=== PATIENT | female | born 1945 | race Caucasian/White ===

== ENCOUNTER 2020-04-28 08:17 | Outpatient (CLI) | payer MEDICARE, SELFPAY ==
--- NOTE | 2020-04-28 | DI.RAD_ITS ---
EXAM: XR CHEST 2V PA LATERAL CLINICAL HISTORY: SOB R06.02 TECHNIQUE: 2D digital imaging was performed. COMPARISON: No exams were available for comparison FINDINGS: MEDIASTINUM: Normal. HEART: Normal. PULMONARY VASCULATURE: Normal. LUNGS: Clear. COPD. PLEURAL SPACE: No pleural effusion or pneumothorax. BONE:Within normal limits for the patient's age. OTHER FINDINGS:Normal. IMPRESSION: No acute pulmonary findings. DATA REPOSITORY: RADIATION DOSE DELIVERED:
== END 2020-04-28 08:37 ==
PROVIDERS: PCP Nurse Practitioner; Visit Provider Nurse Practitioner
DX: R06.02 Shortness of breath (principal); J44.9 Chronic obstructive pulmonary disease, unspecified
CPT/HCPCS: 71046

== ENCOUNTER 2020-04-28 11:31 | Outpatient (REF) | payer MEDICARE, SELFPAY ==
[2020-04-28 21:13] LABS: HCT 48.5 % (36.0-46.0); HGB 14.8 g/dL (11.2-15.7); MCH 31.2 pg (27.0-33.0); MCHC 30.5 % (32.0-36.0); MCV 102.1 fL (80-95); Platelet Count 291 10^3/uL (130-400); RBC 4.75 10^6/uL (3.93-5.22); RDW 12.5 % (11.7-14.6); RDW-SD 47.7 fL; WBC 10.14 10^3/uL (4.4-10.8)
[2020-04-28 22:17] LABS: ALT 21 U/L (14-59); AST 20 U/L (15-37); Albumin 3.8 g/dL (3.4-5.0); Alkaline Phosphatase 114 U/L (46-116); Anion Gap 10.5 mmol/L (3-11); BUN 7 mg/dL (7-18); Bilirubin, Total 0.4 mg/dL (0.2-1.0); CO2 29.5 mmol/L (21.0-32.0); CREATININE 0.84 mg/dL (0.55-1.02); Calcium 9.4 mg/dL (8.5-10.1); Calculated LDL 135 mg/dL (<100); Chloride 107 mmol/L (98-107); Cholesterol 226 mg/dL (<200); Glucose 129 mg/dL (74-106); HDL Cholesterol 58 mg/dL (40-60); Potassium 4.1 mmol/L (3.5-5.1); Sodium 147 mmol/L (136-145); TSH (W/Ref FT4) 0.61 uIU/mL (0.36-3.74); Total Protein 7.5 g/dL (6.4-8.2); Triglyceride 166 mg/dL (<150)
== END 2020-04-28 11:51 ==
LOC: NCHCN 11:31
PROVIDERS: PCP Nurse Practitioner; Visit Provider Nurse Practitioner
DX: R06.02 Shortness of breath (principal); E78.5 Hyperlipidemia, unspecified; Z82.49 Family history of ischemic heart disease and other diseases of the circulatory system; Z13.6 Encounter for screening for cardiovascular disorders
CPT/HCPCS: 80053; 80061; 85027; 84443

== ENCOUNTER 2020-05-14 03:08 | Outpatient (CLI) | payer MEDICARE, SELFPAY ==
[2020-05-14] MEDS: Breeza Beverage 473 ML BTL PO ×2 (07:24→07:25)
[2020-05-14] MEDS: Omnipaque 350 MG/ML 50 ML BTL PO (07:25)
[2020-05-14] MEDS: Omnipaque 350 MG/ML 100 ML BTL IJ (08:09)
[2020-05-14] MEDS: Normal Saline - Diluent 50 ML VIAL IV (08:11)
--- NOTE | 2020-05-14 09:00 | DI.CT_ITS ---
EXAM: CT ABDOMEN PELVIS W INDICATION: EPIGASTRIC ABD BULGE, HERNIA,R19.00. COMPARISON: No exams were available for comparison TECHNIQUE: FINDINGS: CT examination of the abdomen and pelvis was performed with a bolus infusion of 100 cc of Omnipaque 3 50 and ingestion of dilute barium.. Images obtained through the lung bases are unremarkable. Liver, spleen and pancreas appear normal. Prior cholecystectomy noted. No biliary dilatation.. Adrenals and kidneys are unremarkable. Urinary bladder unremarkable. Abdominal aorta is borderline aneurysmal at 2.9 cm greatest diameter. No focal abnormality of major visceral branches seen. Common iliac arteries are of normal diameter. There is a ventral hernia in the upper abdomen, the orifice of the hernia sac measures 5-6 cm in diam eter and the cysts subcutaneous portion of the hernia sac measures about 11 x 5 cm in diameter on axi al imaging. The hernia sac contains fat and a portion of the transverse colon which is nonobstructed and shows normal appearance. Appendix is normal. No evidence of bowel obstruction or diverticulitis although there is diverticulo sis. No abdominal or pelvic adenopathy. Uterus is atrophic or absent. Ovaries not visualized. IMPRESSION: Ventral hernia of the upper abdomen which contains a portion transverse colon which is nonobstructed. No other significant acute findings. Borderline size aneurysm of abdominal aorta, 2.9 cm greatest diameter, infrarenal. RADIATION DOSE DELIVERED: 1,004.45mGy.cm Total DLP 1,004.45mGy.cm Total DLP
== END 2020-05-14 03:28 ==
PROVIDERS: PCP Nurse Practitioner; Visit Provider Nurse Practitioner
DX: K43.9 Ventral hernia without obstruction or gangrene (principal)
CPT/HCPCS: 74177; J3490; Q9967

== ENCOUNTER → 2020-05-28 09:11 | Outpatient (BNVA) | payer MEDICARE, SELFPAY | PROVIDERS: PCP Nurse Practitioner; Referring Provider Nurse Practitioner; Visit Provider Surgery | DX: K43.2 Incisional hernia without obstruction or gangrene (principal); J44.9 Chronic obstructive pulmonary disease, unspecified; Z87.891 Personal history of nicotine dependence | CPT/HCPCS: 99202 ==

== ENCOUNTER 2020-05-31 00:33 | Outpatient (CLI) | payer MEDICARE, SELFPAY ==
--- NOTE | 2020-05-31 | DI.US_ITS ---
APPROVED REPORT EXAM: Comprehensive 2D, Doppler, and color-flow Echocardiogram Patient Location: Out-Patient Civil Engineer: Nasra Ferraro RDCS (AE) Indications: SOB Other Information Study Quality: Adequate Conclusion Borderline concentric left hypertrophy. Normal left ventricular chamber size. Estimated ejection fr action is 55%. There are no segmental wall motion abnormalities Normal right ventricular size and systolic function Normal right and left atrial size The aortic valve is trileaflet and sclerotic with mild regurgitation Mild mitral annular calcification. Mild mitral regurgitation Structurally normal tricuspid and pulmonic valves. Trace tricuspid regurgitation Right ventricular systolic pressure could not be estimated Wall motion Left Ventricle The left ventricle is normal size. The left ventricular systolic function is normal. The left ventric ular ejection fraction is within the normal range. Borderline concentric left ventricular hypertrophy . There is normal LV segmental wall motion. There is no ventricular septal defect visualized. LVEF is 55%. Right Ventricle The right ventricle is normal size. The right ventricular systolic function is normal. Atria The left atrium size is normal. The right atrium size is normal. The interatrial septum is intact wit h no evidence for an atrial septal defect. Aortic Valve The Aortic valve is sclerotic. Aortic valve is trileaflet. There is no aortic valvular stenosis. Mild aortic regurgitation. Mitral Valve Mild mitral annular calcification. No evidence of mitral valve stenosis. Mild mitral regurgitation. Tricuspid Valve The tricuspid valve is normal in structure. There is no tricuspid valve stenosis. Trace tricuspid reg urgitation. Unable to assess PA pressure. Pulmonic Valve The pulmonary valve is normal in structure. There is no pulmonic valvular stenosis. There is no pulmo karie valvular regurgitation. Great Vessels The aortic root is normal in size. The ascending aorta is mildly dilated. Aortic arch is not well vis ualized. IVC is normal in size and collapses >50% with inspiration. Pericardium There is no pericardial effusion. 2D Dimensions IVSD d PLAX 1.05 cm F: 0.6-1.0 LV Vol A2C d MOD 100.4 mL LVPW d PLAX 1.07 cm F: 0.6 - 1.0 LV Vol A4C d MOD 100.1 mL LVID d PLAX 4.83 cm F: 3.8 - 5.2 LA vol/ BSA A2C s A-L 28.0 mL/m2 LVDs 3.40 cm F: 2.2 - 3.5 LA vol/ BSA A4C s A-L 24.6 mL/m2 Ao Root d 2.92 cm F: 2.7 - 3.3 LA Vol/ BSA Biplane s A-L 26.7 mL/m2 RA Area A4C 14.72 cm2 LA Area A4C s MOD 16.73 cm2 RA Vol/ BSA A4C s A-L 19.6 mL/m2 LA Area A2C s MOD 18.19 cm2 Ao Asc Diam d 3.32 cm F: 2.3 - 3.1 LV EF A4C MOD 56.9 % LV EF Teichholz 56.2 % LV EF A2C MOD 56.1 % LVEF (Barnhart's) 56.68 % F: 54 - 74 LV EF Biplane MOD 56.7 % LV Volume 78.70 mL F: 46 - 106 SV 57.65 mL LV Volume Index 43.24 mL/m2 F: 29 - 61 SV Index 31.55 mL/m2 LV Vol Biplane MOD 101.7 mL FS 29.40 % M-Mode TAPSE 2.20 cm (M/F) >1.7 LV Diastology MV E' medial 0.070 (>0.07 m/s) E/A Ratio 0.8 LV E/e MED 9.50 (<14) MV E Vmax 0.67 (0.4-1.3 m/s) MV E' lateral 0.074 (>0.1 m/s) MV A Vmax 0.85 (0.4-1.3 m/s) LV E/e LAT 9.00 (<14) MV E/A Ratio 0.77 MV E/E' medial 9.54 MV E/E' lateral 9.04 Aortic Valve LVOT Area 3.10 cm2 AoV Area Vmax 2.29 cm2 LVOT Vmax 1.05 m/s AoV Area/ BSA (Vmax) 1.25 cm2/m2 LVOT Mean Brain. 0.61 m/s ALEX Mean Brain. 1.69 cm2 LVOT Peak Grad 4.4 mmHg ALEX Mean Brain. Index 0.92 cm2/m2 LVOT Mean Grad 1.8 mmHg AR DT 1784 msec LVOT VTI 0.214 m AR PHT 517 msec LVOT Diam s 1.95 cm AoV Vmax 1.42 m/s Velocity Ratio 0.73 AoV Mean Brain. 1.12 m/s AoV Peak Grad 8.0 mmHg LVOT SV 66.33 mL AoV Mean Grad 5.3 mmHg AoV VTI 0.335 m AoV Area VTI 1.98 cm2 AoV Area/ BSA (VTI) 1.08 cm/m2 Mitral Valve MV DT 206 (160-240 msec) MR Vmax 5.57 m/s MV PHT 60 msec MR VTI 2.088 m MV Area PHT 3.69 cm2 MR Peak Grad 124.2 mmHg MV VTI 0.233 m MR Mean Grad 91.4 mmHg MV VTI Annulus 0.219 m MR PISA Radius 0.49 cm MV Area VTI 2.69 (4.0-6.0 cm2) MR EROA 0.09 cm2 MR Aliasing Velocity 0.35 m/s MR PISA 1.50 cm2 Pulmonary Valve PV Vmax 0.95 (0.5-1.5 m/s) RVOT Peak Gr. 1.94 mmHg PV Peak Grad 3.6 mmHg RVOT Mean Gr. 1.00 mmHg PV Mean Grad 1.8 mmHg RVOT VTI 0.158 m PV VTI 0.169 m RVOT Vmax 0.70 m/s
== END 2020-05-31 00:53 ==
PROVIDERS: PCP Nurse Practitioner; Visit Provider Nurse Practitioner
DX: R06.02 Shortness of breath (principal); I08.0 Rheumatic disorders of both mitral and aortic valves
CPT/HCPCS: 93306

== ENCOUNTER 2020-10-14 03:01 | Outpatient (CLI) | payer MEDICARE, SELFPAY ==
[2020-10-14] MEDS: Albuterol HFA 18 GM 200 PUFF INH IH (14:00)
[2020-10-14] MEDS: Inhaler, Assist Device 1 EACH MC (14:01)
--- NOTE | 2020-10-27 08:18 | W.PFT ---
Date of service: 10/14/20 Time of Service: 12:59 Pulmonary Function Test Result Interpretation Spirometry: Moderately severe obstructive airways disease with significant bronchodilator response Lung Volumes: No evidence of restriction Diffusion Capacity: Severely reduced, this is moderately reduced when corrected to alveolar volume Airway Pressure: Normal Impression Moderately severe obstructive airways disease with significant bronchodilator response, this is associated with moderate to severe diffusion defect Clinical Correlation therefore is recommended.
== END 2020-10-14 03:02 | disposition home or self-care (01) ==
LOC: RT 03:01
PROVIDERS: PCP Nurse Practitioner; Visit Provider Nurse Practitioner
DX: R06.02 Shortness of breath (principal); Z87.891 Personal history of nicotine dependence
CPT/HCPCS: 94060; 94726; 94729

== ENCOUNTER 2021-02-08 00:51 | Outpatient (CLI) | payer MEDICARE, SELFPAY ==
--- NOTE | 2021-02-08 | DI.US_ITS ---
Exam(s) US HERNIA EXAM: US HERNIA CLINICAL HISTORY: HERNIA,K46.9. TECHNIQUE: Ultrasound was performed using standard protocol. COMPARISON: CT CT ABDOMEN PELVIS W from 05/14/[address] ABDOMEN PELVIS W from 05/14/2020 FINDINGS: Sonographic assessment utilizing grayscale and color Doppler imaging was performed and targeted to th e area of clinical concern. There does appear to be a defect in the anterior abdominal wall in the mid to upper abdomen sonograph ically. There does appear to be herniation of fat through the defect on Valsalva. This corresponds to the ventral hernia seen on the CT scan from 05/14/2020. If further evaluation is warranted a CT sc an of the abdomen may be considered. IMPRESSION: DATA REPOSITORY:
--- NOTE | 2021-02-08 | DI.US_ITS ---
Exam(s) US AAA DIAGNOSTIC EXAM: US AAA DIAGNOSTIC CLINICAL HISTORY: F/U AAA,I71.4 COMPARISON: CT CT ABDOMEN PELVIS W from 05/14/2020 FINDINGS: Abdominal Aorta: Proximal: 2.8 x 2.7 cm Mid: 2.3 x 2.4 cm Distal: 2.9 x 2.8 cm Iliac's: Right: 1.3 x 1.3 cm Left: 1.4 x 1.2 cm The doppler velocities are within normal limits. Atherosclerosis. IMPRESSION: Ectasia of the distal abdominal aorta with a maximum diameter of 2.9 cm. DATA REPOSITORY:
== END 2021-02-08 01:11 ==
PROVIDERS: PCP Nurse Practitioner; Visit Provider Nurse Practitioner
DX: K46.9 Unspecified abdominal hernia without obstruction or gangrene (principal); I77.811 Abdominal aortic ectasia; I71.4 Abdominal aortic aneurysm, without rupture
CPT/HCPCS: 76857; 76775

== ENCOUNTER 2021-04-25 10:02 | Outpatient (REF) | payer MEDICARE, SELFPAY ==
[2021-04-25 15:50] LABS: Hemoglobin A1C 6.2 % (<5.7)
[2021-04-25 15:53] LABS: ALT 26 U/L (14-59); AST 21 U/L (15-37); Albumin 3.9 g/dL (3.4-5.0); Alkaline Phosphatase 139 U/L (46-116); Anion Gap 9.4 mmol/L (3-11); BUN 21 mg/dL (7-18); Bilirubin, Total 0.2 mg/dL (0.2-1.0); CO2 28.6 mmol/L (21.0-32.0); Calcium 10.1 mg/dL (8.5-10.1); Calculated LDL 97 mg/dL (<100); Chloride 104 mmol/L (98-107); Cholesterol 183 mg/dL (<200); Estimated GFR 54.05 (mL/min/1.73m2); Glucose 109 mg/dL (74-106); HDL Cholesterol 63 mg/dL (40-60); Potassium 4.8 mmol/L (3.5-5.1); Sodium 142 mmol/L (136-145); Total Protein 7.8 g/dL (6.4-8.2); Triglyceride 119 mg/dL (<150)
== END 2021-04-25 10:03 | disposition home or self-care (01) ==
LOC: NCHCN 10:02
PROVIDERS: PCP Nurse Practitioner; Visit Provider Nurse Practitioner
DX: I10 Essential (primary) hypertension (principal); E78.5 Hyperlipidemia, unspecified; I71.4 Abdominal aortic aneurysm, without rupture; R73.9 Hyperglycemia, unspecified
CPT/HCPCS: 80053; 80061; 83036

== ENCOUNTER → 2021-12-21 02:26 | Outpatient (CLI) | payer MEDICARE, SELFPAY ==
--- NOTE | 2021-12-21 | DI.US_ITS ---
Exam(s) US AAA DIAGNOSTIC EXAM: US AAA DIAGNOSTIC CLINICAL HISTORY: AAA, I71.4 COMPARISON: CT CT ABDOMEN PELVIS W from 05/14/2020 US US AAA DIAGNOSTIC from 02/08/2021 FINDINGS: Abdominal Aorta: Proximal: 2.8 cm Mid: 2.4 cm Distal: 2.9 cm Iliacs: Right: 1.3 cm Left: 1.4 cm Atherosclerotic calcifications are present. IMPRESSION: Stable ectasia distal abdominal aorta. DATA REPOSITORY:
== END ==
PROVIDERS: PCP Nurse Practitioner; Visit Provider Nurse Practitioner Family
DX: I71.4 Abdominal aortic aneurysm, without rupture (principal)
CPT/HCPCS: 76775

== ENCOUNTER 2022-10-23 09:20 | Outpatient (REF) | payer MEDICARE, SELFPAY ==
[2022-10-23 14:39] LABS: Abs Immature Grans 0.01 10^3/uL (0.0-0.06); Absolute Eosinophil Count 0.18 10^3/uL (0.0-0.7); Absolute Lymphocyte Count 2.58 10^3/uL (1.2-3.4); Absolute Monocyte Count 0.61 10^3/uL (0.1-0.8); Absolute Neutrophil Count 5.04 10^3/uL (1.2-6.7); Basophils % 1.2; Eosinophils % 2.1; HCT 40.3 % (36.0-46.0); HGB 12.8 g/dL (11.2-15.7); Immature Grans % 0.1; Lymphocytes % 30.3; MCH 29.3 pg (27.0-33.0); MCHC 31.8 % (32.0-36.0); MCV 92 fL (80-95); MPV 11.3 fL (8.0-11.0); Monocytes % 7.2; Neutrophils % 59.1; Platelet Count 301 10^3/uL (130-400); RBC 4.37 10^6/uL (3.93-5.22); RDW 12.9 % (11.7-14.6); RDW-SD 44.1 fL; WBC 8.52 10^3/uL (4.4-10.8)
[2022-10-23 14:58] LABS: ALT 17 U/L (14-59); AST 21 U/L (15-37); Albumin 3.6 g/dL (3.4-5.0); Alkaline Phosphatase 124 U/L (46-116); Anion Gap 6.6 mmol/L (3-11); BUN 17 mg/dL (7-18); Bilirubin, Total 0.3 mg/dL (0.2-1.0); CO2 30.4 mmol/L (21.0-32.0); CREATININE 1.1 mg/dL (0.55-1.02); Calculated LDL 90 mg/dL (<100); Chloride 106 mmol/L (98-107); Cholesterol 167 mg/dL (<200); Estimated GFR 51.75 (mL/min/1.73m2); Glucose 113 mg/dL (74-106); HDL Cholesterol 61 mg/dL (40-60); Potassium 4.3 mmol/L (3.5-5.1); Sodium 143 mmol/L (136-145); Total Protein 7.5 g/dL (6.4-8.2); Triglyceride 83 mg/dL (<150)
[2022-10-23 15:01] LABS: Hemoglobin A1C 6.2 % (<5.7)
== END 2022-10-23 09:21 | disposition home or self-care (01) ==
LOC: NCHCN 09:20
PROVIDERS: PCP Nurse Practitioner Family; Visit Provider Nurse Practitioner Family
DX: I10 Essential (primary) hypertension (principal); E78.5 Hyperlipidemia, unspecified; R05.3 Chronic cough; J44.9 Chronic obstructive pulmonary disease, unspecified; R73.09 Other abnormal glucose
CPT/HCPCS: 80053; 80061; 83036; 85025

== ENCOUNTER 2023-01-19 00:42 | Outpatient (CLI) | payer MEDICARE, SELFPAY ==
--- NOTE | 2023-01-19 | DI.US_ITS ---
Exam(s) US AAA DIAGNOSTIC EXAM: US AAA DIAGNOSTIC CLINICAL HISTORY: F/U AAA,i71.4 COMPARISON: CT CT ABDOMEN PELVIS W from 05/14/2020 US US AAA DIAGNOSTIC from 12/21/2021 FINDINGS: The abdominal aorta is again noted be ectatic. Maximum diameter is a transverse measurement at the m id aortic level measuring 3.5 cm. This measurement is higher than prior studies.. Distal most aorta measures 2.1 cm. The bilateral common iliac artery measurements are also higher than on previous studies, measuring 1. 9 cm on the right and 2.2 cm on the left. IMPRESSION: Somewhat of a change when compared to prior measurements. Recommend follow-up abdominal-pelvic CT sc an for most accurate measurements, and to ensure that the present ultrasound measurements were not ob tained obliquely, given falsely elevated readings when compared to prior ultrasound studies. If one wishes to determine just the size of the aorta and iliac arteries than the CT scan can be done without IV contrast. DATA REPOSITORY:
== END 2023-01-19 01:02 ==
LOC: DI 00:42
PROVIDERS: PCP Nurse Practitioner Family; Visit Provider Nurse Practitioner Family
DX: I71.40 Abdominal aortic aneurysm, without rupture, unspecified (principal)
CPT/HCPCS: 76775

== ENCOUNTER → 2023-05-16 10:55 | Outpatient (BNVA) | payer MEDICARE, SELFPAY | PROVIDERS: PCP Nurse Practitioner Family; Referring Provider Nurse Practitioner Family; Visit Provider Surgery | DX: K46.9 Unspecified abdominal hernia without obstruction or gangrene (principal); J44.9 Chronic obstructive pulmonary disease, unspecified; K21.9 Gastro-esophageal reflux disease without esophagitis | CPT/HCPCS: 99213 ==

== ENCOUNTER 2023-06-29 07:27 | Day surgery (SDC) | payer MEDICARE, SELFPAY ==
--- NOTE | 2023-06-28 16:50 | W.PREOPHP ---
Assessment and Plan Assessment and plan (1) Hernia: Status: Chronic Assessment and plan: We reviewed the plan for incisional hernia repair with mesh today. We reviewed all of her questions, and plan to proceed to the operating room History of Present Illness History of Present Illness Chief Complaint: Ventral hernia Narrative: She has had the hernia for several years. She thinks it may have started from the mid epigastric port site from a laparoscopic cholecystectomy. Generally, it does not bother her very much, but has certainly increased in size. There are some positions which cause a little bit of pain. She denies any obstructive symptoms like nausea, vomiting, or worrisome abdominal distention. Her other medical history includes some COPD, which is well managed with inhalers. She also has some mild gastroesophageal reflux disease. PFSH All Active Problems Edema (Acute) Pain, foot (Acute) Corns and callosities (Acute) Nail dystrophy (Acute) Ingrowing nail (Acute) Hypertension (Chronic) COPD (chronic obstructive pulmonary disease) (Chronic) Stage II in 2021. Hyperlipemia (Acute) Abdominal mass (Acute) AAA (abdominal aortic aneurysm) (Acute) 2.9cm in 2020 Hernia (Chronic) Medical History Ventral hernia Chronic cough Prediabetes History of tobacco use significant use; [id number] history; quit in 2009 SOB (shortness of breath) Family history of early CAD Elevated blood pressure reading Social History Smoking/Tobacco Use Status: Former Tobacco Use Quit Date: 08/27/09 Pack-years: 50 Smoking risk assessment performed?: Yes Alcohol Intake: current Alcohol Intake frequency: a few times a week Drug use: Never Substance use type: does not use Housing: apartment Current gender identity: female Do you feel safe at home: Yes Do you feel safe in your relationship?: Yes Meds Allergies and Home Medications Allergies Allergy/AdvReac Type Severity Reaction Status Date / Time fish oil Allergy Unknown Verified 06/29/23 08:39 codeine AdvReac Mild Nausea Verified 06/29/23 08:39 Home Medications Medication Instructions Recorded Confirmed Type albuterol sulfate 90 mcg/actuation 2 puff inhalation Q6H PRN 05/25/20 06/29/23 History aerosol inhaler (ProAir HFA) amlodipine 10 mg tablet 10 mg PO DAILY 09/04/22 06/29/23 History cetirizine 10 mg tablet (All Day 10 mg PO DAILY 09/04/22 06/29/23 History Allergy (cetirizine)) esomeprazole magnesium 20 mg 20 mg PO DAILY 09/04/22 06/29/23 History capsule,delayed release lisinopril 10 mg tablet 20 mg PO DAILY 09/04/22 06/29/23 History rosuvastatin 20 mg tablet 20 mg PO DAILY 09/04/22 06/29/23 History fluticasone propionate 230 2 puff inhalation BID 11/30/22 06/29/23 History mcg-salmeterol 21 mcg/actuation HFA inhaler (Advair HFA) hydrochlorothiazide 12.5 mg tablet 12.5 mg PO DAILY 11/30/22 06/29/23 History Exam Const General: cooperative, healthy appearing and not in acute distress Neck Neck: normal visual inspection, no lymphadenopathy and supple Resp Effort & Inspection: normal respiratory effort Auscultation: clear to auscultation bilaterally Cardio Jugular venous pressure: no JVD Rate: regular rate Rhythm: regular rhythm Heart Sounds: S1 normal and S2 normal GI Inspection: normal to inspection Palpation: soft, no guarding, hernia (Upper midline ventral hernia) and nontender Percussion: normal to percussion Auscultation: normal bowel sounds Neuro General: patient alert, patient awake and patient oriented x3 Psych Appearance: grossly normal
--- NOTE | 2023-06-28 16:51 | W.PM.DSUDISC ---
Date of service: 06/29/23 Time of Service: 10:48 Discharge Plan Disposition Patient Disposition: Home Condition: Good Discharge Details Reason For Visit: Ventral hernia repair Attending Provider: Rei Le Primary Care Provider: JATINDER WOODALL Home Meds and New Rx's Prescriptions: Continued esomeprazole magnesium 20 mg capsule,delayed release(DR/EC) 20 mg PO DAILY amlodipine 10 mg tablet 10 mg PO DAILY rosuvastatin 20 mg tablet 20 mg PO DAILY cetirizine [All Day Allergy (cetirizine)] 10 mg tablet 10 mg PO DAILY albuterol sulfate [ProAir HFA] 90 mcg/actuation HFA aerosol inhaler 2 puff inhalation Q6H PRN lisinopril 10 mg tablet 20 mg PO DAILY fluticasone propion-salmeterol [Advair HFA] 230-21 mcg/actuation HFA aerosol inhaler 2 puff inhalation BID hydrochlorothiazide 12.5 mg tablet 12.5 mg PO DAILY Discharge Instructions Instructions: Ventral Hernia Repair (DC) Additional Instructions: Carmina, we were able to repair your hernia today like we talked about in the office. I closed the tough layer of tissue underneath of the rectus muscles, and inserted a permanent mesh underneath this to reinforce it. We also closed the top layer of fascia on top of the muscles as well. Expect to have a little bit of increased pain over the next day or 2 as some of the numbing medication wears off. Tylenol and ibuprofen will probably be very helpful in the coming 2 to 3 days. I have also provided a prescription for a medication called tramadol which can help if your pain is not otherwise controlled. If you have any questions at all, please do not hesitate to contact me. Otherwise, we look forward to seeing you in the office next week for removal of your bandage. 1. Resume all of your medications. 2. Heating pads and ice packs will be useful to help control discomfort in the days following surgery 3. Okay to use tylenol and ibuprofen over the counter as needed. 4. We have provided an abdominal binder (the elastic bandage that goes around her torso) for the first couple days after surgery. I would encourage you to wear this when you are up and about and moving around. It can be removed for sleep. If you find it particularly uncomfortable, we will be okay to remove. 5. Underneath of the binder is a clear bandage that provide suction on the incision to help control any drainage that might occur in the days to follow your operation. If you notice that the blinking the light on the little battery changes from green to red, please let us know. Otherwise, we plan to change this in the office in a week. It is okay to shower with this device. 6. No soaking or tub baths until I see you in the office. 7. No heavy lifting until I see you in the office. 8.Call the office (or go directly to the emergency room after hours) if you notice any of the following: Develop chills (warm to touch), or if you have a thermometer and your temperature is above 101 Difficulty breathing or difficultly swallowing Persistent vomiting Any bleeding ? exceeding one tablespoon 9. Call your physician if the site where your intravenous was started becomes red, swollen, painful, and warm to touch. Referrals: Rei Le MD [ [facility] STAFF PHYSICIAN] - (July 04 at 3:15 PM) Activity:: No heavy lifting Shower/Bathe:: 24 hours Diet:: As Tolerated Discharge Orders Discharge Orders: Discharge Order (Routine); Ordered 06/28/23 Ordered By: Rei Le DS: Diagnosis Discharge Diagnosis (1) Hernia: Status: Chronic Asessment and Plan: Outpatient routine postoperative follow-up
--- NOTE | 2023-06-28 16:53 | W.PM.OP ---
Date of service: 06/29/23 Time of Service: 10:56 Operative Note Operative Note DATE OF PROCEDURE: 06/29/23 PRE-OP DIAGNOSIS: Ventral hernia PROCEDURE: Open ventral hernia repair with mesh SURGEON: Rei Le STEM DRYER MAINTAINER: Lurdes Leigh ANESTHESIA TYPE: General LMA/ETT Refer to Anesthesia Record ESTIMATED BLOOD LOSS: 25 PATHOLOGY: none sent COMPLICATIONS: None Patient was transported to: PACU Patient's condition: stable Implants: Bard polypropylene mesh Indications: Clarke is a 78-year-old woman with a large midline upper ventral hernia. Is been increasing in size, and causes some discomfort from time to time. Procedure Description: After the induction of general anesthesia, prepped and draped the anterior abdominal wall in the usual fashion. Next, using local anesthetic, I established a generous field block. I then made a midline incision, and I dissected down into the subcutaneous tissues. The hernia was almost immediately under the skin, and with gentle dissection, I began it from the surrounding soft tissues. The sac itself was quite attenuated, and because of difficulty handing it, I did elect to open the sac and dissect down to the fascia by way of an internal approach. Once this was completed, the hernia sac itself was carefully dissected away from the fascial edge. The fascia defect was approximately 5 cm from top to bottom, and about 4-4 and half centimeters wide. Using a Kyler-Stoppa approach I incised the rectus sheath towards the posterior element. I carefully dissected the rectus muscles off of the rectus sheath, taking great care to preserve the neurovascular supply. Once this was complete, I closed the posterior fascial sheath with a running 2-0 Prolene suture. Next, I trimmed a 6 x 4 polypropylene mesh to provide sufficient overlap of the repair. I pexied this down onto the fascia with interrupted Prolene sutures. I allowed the rectus muscles to retract towards the midline. Next, I began approximating the anterior rectus sheath. This layer was quite attenuated. [place] type suture was used to help approximate the fascia without too much tension along the closure. Once this was complete, the soft tissues were irrigated. The potential space that had been created by the hernia was then approximated with several layers of interrupted Vicryl sutures. Skin was closed with a running subcuticular stitch, and elfego dressing was applied. An abdominal binder was also used to help assist with patient comfort, and to reduce pressure across the repair site.
[2023-06-29] VITALS (17 sets, daily range): BP systolic 95–123; BP diastolic 32–58; PULSE 63–75; RESP 3–27; TEMP 35.9–36.8; O2SAT 89–96; BMI 32.8
[2023-06-29] MEDS: Gabapentin 300 MG CAP 600 MG PO (08:07)
[2023-06-29] MEDS: Acetaminophen 500 MG TAB 1000 MG PO (08:08)
[2023-06-29] MEDS: Celecoxib 200 MG CAP PO (08:08)
[2023-06-29] MEDS: Lactated Ringers 1,000 ML 80 ML IV (08:26)
--- NOTE | 2023-06-29 08:27 | ANES.PREOP_ITS ---
General Info Date of Service Date Performed: 06/29/23 Height: 5 ft 2 in Weight: 81.3 kg Body Mass Index (BMI): 32.8 Surgical Procedure: Operation Date: 06/29/23 09:10 Proposed Procedure Side Surgeon p Herniorrhaphy Ventral Rei Le MD Meds Allergies and Home Medications Allergies Allergy/AdvReac Type Severity Reaction Status Date / Time fish oil Allergy Unknown Verified 06/29/23 07:57 codeine AdvReac Mild Nausea Verified 06/29/23 07:57 Home Medication Medication Instructions Recorded albuterol sulfate 90 mcg/actuation 2 puff inhalation Q6H PRN 05/25/20 aerosol inhaler (ProAir HFA) amlodipine 10 mg tablet 10 mg PO DAILY 09/04/22 cetirizine 10 mg tablet (All Day 10 mg PO DAILY 09/04/22 Allergy (cetirizine)) esomeprazole magnesium 20 mg 20 mg PO DAILY 09/04/22 capsule,delayed release lisinopril 10 mg tablet 20 mg PO DAILY 09/04/22 rosuvastatin 20 mg tablet 20 mg PO DAILY 09/04/22 fluticasone propionate 230 2 puff inhalation BID 11/30/22 mcg-salmeterol 21 mcg/actuation HFA inhaler (Advair HFA) hydrochlorothiazide 12.5 mg tablet 12.5 mg PO DAILY 11/30/22 Current Visit Medications: Current Medications Generic Name Dose Route Start Last Admin Trade Name Freq PRN Reason Stop Dose Admin Acetaminophen 1,000 mg 06/29/23 06:00 06/29/23 08:08 Acetaminophen 500 Mg Tab PO 06/29/23 16:00 1,000 mg PREOP KATHLEEN Administration Celecoxib 200 mg 06/29/23 06:00 06/29/23 08:08 Celecoxib 200 Mg Cap PO 06/29/23 16:00 200 mg PREOP KATHLEEN Administration Gabapentin 600 mg 06/29/23 06:00 06/29/23 08:07 Gabapentin 300 Mg Cap PO 06/29/23 16:00 600 mg PREOP KATHLEEN Administration Ringer's Solution 1,000 mls @ 80 mls/hr 06/29/23 06:00 06/29/23 08:26 IV 07/28/23 23:59 80 mls/hr INFUSION KATHLEEN Administration Cefazolin Sodium/Dextrose 2 gm in 50 mls @ 100 mls/hr 06/29/23 08:15 Ancef Duplex IV 06/29/23 08:44 NOW ONE IV Miscellaneous Supplies 1 each 06/29/23 06:00 Iv Access IV 07/28/23 23:59 DIRECTED KATHLEEN Sodium Chloride 0 ml 06/29/23 06:00 Normal Saline Flush 10 Ml Syr IV 07/28/23 23:59 PRN PRN Sodium Chloride 0 ml 06/29/23 06:00 Normal Saline 10 Ml Vial IJ 07/28/23 23:59 DIRECTED PRN Sterile Water 0 ml 06/29/23 06:00 Water,Injection,Sterile 10 Ml Vial IJ 07/28/23 23:59 DIRECTED PRN Tramadol HCl 50 mg 06/28/23 16:54 Tramadol 50 Mg Tab PO 07/28/23 16:53 Q6H PRN PRN Pain PFSH Active Problems Active Problems: Problem Status Onset Code Edema R60.9 Pain, foot M79.673 Corns and callosities L84 Nail dystrophy L60.3 Ingrowing nail L60.0 Hypertension I10 COPD (chronic obstructive pulmonary disease) J44.9 Hyperlipemia E78.5 Abdominal mass R19.00 AAA (abdominal aortic aneurysm) I71.4 Hernia K46.9 Medical History Medical History Ventral hernia Chronic cough Prediabetes History of tobacco use significant use; 30-plzx-syxh history; quit in 2009 SOB (shortness of breath) Family history of early CAD Elevated blood pressure reading Tobacco Smoking/Tobacco Use Status: Former Tobacco Use Alcohol Alcohol Intake: current Alcohol intake frequency: a few times a week Substance Use Substance use: Never Substance use type: does not use Vital Signs and Lab Results Vital Signs Most Recent Vital Signs in EMR: Most Recent Vital Signs Temp Pulse Resp BP Pulse Ox 36.8 C 74 18 108/58 L 95 06/29/23 08:00 06/29/23 08:00 06/29/23 08:00 06/29/23 08:00 06/29/23 08:00 Lab Results Blood Type / Crossmatch: No Data to Display Complete Blood Count: No Data to Display Complete Metabolic Panel: No Data to Display Liver Function Panel: No Data to Display Coagulation Panel: No Data to Display Cardiac Panel: No Data to Display Arterial Blood Gas: No Data to Display Venous Blood Gas: No Data to Display Pancreas Panel: No Data to Display Thyroid Panel: 2 No Data to Display Infectious Disease: No Data to Display Blood Cultures: No Data to Display Toxicology Panel: No Data to Display Imaging and Studies Imaging and Studies Study information below may be from another EMR and interpreted by another provider. Please see original notes in EMR for more complete details. Echocardiogram Summary: Date of Exam: 05/31/20 Sex: F Admission Date: 05/31/20 : 1945 Age: 74 Exam(s) a US:US echocardiogram APPROVED REPORT EXAM: Comprehensive 2D, Doppler, and color-flow Echocardiogram Patient Location: Out-Patient Systems Programmer: Nasra Ferraro RDCS (AE) Indications: SOB Other Information Study Quality: Adequate Conclusion Borderline concentric left hypertrophy. Normal left ventricular chamber size. Estimated ejection fraction is 55%. There are no segmental wall motion abnormalities Normal right ventricular size and systolic function Normal right and left atrial size The aortic valve is trileaflet and sclerotic with mild regurgitation Mild mitral annular calcification. Mild mitral regurgitation Structurally normal tricuspid and pulmonic valves. Trace tricuspid regurgitation Right ventricular systolic pressure could not be estimated Pulmonary Function Summary: Pulmonary Function Test Result Interpretation Spirometry: Moderately severe obstructive airways disease with significant bronchodilator response Lung Volumes: No evidence of restriction Diffusion Capacity: Severely reduced, this is moderately reduced when corrected to alveolar volume Airway Pressure: Normal Impression Moderately severe obstructive airways disease with significant bronchodilator response, this is associated with moderate to severe diffusion defect Clinical Correlation therefore is recommended. Anesthesia Assessment and Plan Anesthesia History Personal History: No History of Anesthesia Complications Family History: No Family History of Anesthesia Complications Exercise Tolerance Exercise Tolerance: Metabolic Equivalents>4 Pertinent Negatives Pertinent Negatives: No Symptoms of GERD and No Major Cardiovascular Symptoms or Complaints Cardiac & Pulmonary Exam Cardiac Exam: Normal S1/S2 Heart Sounds Pulmonary Exam: Clear Bilateral Breath Sounds Implantable Cardiac Device Does patient have a Pacemaker or an ICD?: No Airway Exam Known Difficult Airway: No Mallampati Class: 2 Mouth Opening: Normal (> 3cm) Thyromental Distance: Less than 3 cm Neck Range of Motion: Full ROM Neck Circumference: Normal Teeth Condition: Normal Dentition ASA Classification ASA Score: ASA 3 Emergency Case?: No NPO Status NPO Status: NPO Clears >2 hours, Solids >8 hours Anesthesia Plan Resuscitation Status: Full Code Anesthesia Technique: General Anesthesia Airway Planned: LMA Pain Management: Surgeon and patient request nerve block Monitors Used: Standard Monitors
[2023-06-29] MEDS: ceFAZolin 2 GM/50 ML BAG IV (09:05)
[2023-06-29] MEDS: Bupivacaine LIPOSOME/PF 133 MG/10 ML VIAL IJ (10:06)
[2023-06-29] MEDS: Bupivacaine 0.25% Pres-Free 30 ML VIAL (10:06)
[2023-06-29] MEDS: fentaNYL 100 MCG/2 ML VIAL IVP (11:05)
[2023-06-29] MEDS: traMADol 50 MG TAB PO (13:00)
[2023-06-29] MEDS: Albuterol 2.5 MG/3 ML INH SOLN VIAL UPD (13:15)
[2023-06-29] MEDS: Albuterol/Ipratropium 3 ML UPD VIAL UPD (14:29)
--- NOTE | 2023-06-29 15:01 | W.ANESPOSTOP ---
Postoperative Evaluation Date, Time and Location Date Performed: 06/29/23 Time Performed: 15:01 Patient Location: Day Surgery Unit Vital Signs Most Recent Imported Vital Signs: Most Recent Vital Signs Temp Pulse Resp BP Pulse Ox 36.6 C 70 20 114/57 L 92 L 06/29/23 14:06 06/29/23 14:29 06/29/23 14:06 06/29/23 14:06 06/29/23 15:01 Pain Score Most Recent Pain Score: Most Recent Pain Score Pain Level 2 06/29/23 14:06 Assessment Mental Status: Awake (Alert & Oriented to Patient Baseline) Airway and Respiratory Function: Patent airway with normal (patient baseline) respiratory exam Cardiovascular Function: Hemodynamically Stable Hydration Status: Adequately Hydrated Nausea & Vomiting: No Nausea or Vomiting Pain: Pain is tolerable per patient Peripheral Nerve Block: Patient did not receive a nerve block Postoperative Comments:: Pt. required supplemental oxygen after surgery for some time. She also was noted be be wheezy bilaterally with SpO2 84-86% on room air. She states at home she is 88-92% when walking. Does not use home oxygen. She was given time as well as albuterol neb and duoneb with improvement. She ambulated with SpO2 up to 92%, then increased after sitting. She feels like she is breathing normally and is ready to go home. I did advise that a pulmonary consult would likely benefit her and she states she will follow up on this.
== END 2023-06-29 15:15 | disposition home or self-care (01) ==
LOC: SUR 07:28
PROVIDERS: PCP Nurse Practitioner Family; Visit Provider Surgery
PROC: (CPT 49593; principal; 2023-06-29 09:00)
DX: K43.2 Incisional hernia without obstruction or gangrene (principal); I10 Essential (primary) hypertension; J44.9 Chronic obstructive pulmonary disease, unspecified; E78.5 Hyperlipidemia, unspecified; R73.03 Prediabetes
CPT/HCPCS: 49593; 94640; 94760; C1781; J0690; J1100; J2001; J2405; J2704; J3010; J7613; J7620

== ENCOUNTER → 2023-07-04 15:11 | Outpatient (BNVA) | payer MEDICARE, SELFPAY | PROVIDERS: PCP Nurse Practitioner Family; Referring Provider Nurse Practitioner Family; Visit Provider Surgery | DX: Z48.817 Encounter for surgical aftercare following surgery on the skin and subcutaneous tissue (principal); K46.9 Unspecified abdominal hernia without obstruction or gangrene ==

== ENCOUNTER → 2023-07-11 08:23 | Outpatient (BNVA) | payer MEDICARE, SELFPAY | PROVIDERS: PCP Nurse Practitioner Family; Referring Provider Nurse Practitioner Family; Visit Provider Surgery | DX: Z48.817 Encounter for surgical aftercare following surgery on the skin and subcutaneous tissue (principal) ==

== ENCOUNTER 2023-09-12 17:23 | Inpatient (IN) | payer MEDICARE, SELFPAY ==
[2023-09-12] VITALS (137 sets, daily range): BP systolic 65–145; BP diastolic 43–94; PULSE 71–105; RESP 15–30; TEMP 36.1–37.2; O2SAT 73–94
--- NOTE | 2023-09-12 17:30 | RT.EKG_ITS ---
APPROVED REPORT Exam: Resting ECG Reason for Exam: shortness of breath Patient Location: E HR:89 bpm ECG Measurements Heart Rate 89 AXIS GA 160 P 57 QRSd 95 QRS 1 QT 379 T 59 QTc 462 Conclusion Sinus rhythm normal axis non specific st depressions
--- NOTE | 2023-09-12 17:30 | DI.RAD_ITS ---
Exam(s) XR PORTABLE CHEST AP EXAM: XR PORTABLE CHEST AP CLINICAL HISTORY: cough TECHNIQUE: 2D digital imaging was performed. COMPARISON: CR XR CHEST 2V PA LATERAL from 04/28/2020 FINDINGS: The exam is limited by under penetration at the lung bases. LUNGS: There is a small left pleural effusion. There are increased densities at both lung bases, gre ater on the left which could indicate pneumonia. There is some pulmonary vascular prominence when co mpared to the prior exam which could in part be due to projection. HEART: Normal size for projection. AORTA: Normal diameter. Calcification. BONES: Spine mostly obscured. Soft tissues: Unremarkable. IMPRESSION: Small left pleural effusion. Bibasilar densities could represent infiltrates. DATA REPOSITORY: RADIATION DOSE DELIVERED:
[2023-09-12 17:46] LABS: BE (Venous) -2 mmol/L (-2-3); HCO3 (Venous) 24 mmol/L (23-28); O2 Sat (Venous) 70 %; TCO2 (Venous) 22 mmol/L (24-29); pCO2 (Venous) 40 mmHg (41-51); pH (Venous) 7.38 (7.31-7.41); pO2 (Venous) 35 mmHg
[2023-09-12 17:47] LABS: Abs Immature Grans 0.09 10^3/uL (0.0-0.06); HGB 12.6 g/dL (11.2-15.7); MCHC 31.5 % (32.0-36.0); MCV 92 fL (80-95); Platelet Count 329 10^3/uL (130-400); RBC 4.35 10^6/uL (3.93-5.22); RDW 13.2 % (11.7-14.6); RDW-SD 45.1 fL; WBC 19.62 10^3/uL (4.4-10.8)
[2023-09-12 17:55] LABS: Absolute Lymphocyte Count 3.53 10^3/uL (1.2-3.4); Absolute Monocyte Count 0.59 10^3/uL (0.1-0.8); Diff Comment Manual Differential; RBC Morphology Normal
[2023-09-12] MEDS: Albuterol/Ipratropium 3 ML UPD VIAL UPD ×2 (18:01→22:06)
[2023-09-12] MEDS: methylPREDNISolone SUCC 125 MG VIAL IVP (18:01)
[2023-09-12 18:13] LABS: ALT 11 U/L (14-59); AST 17 U/L (15-37); Albumin 3.2 g/dL (3.4-5.0); Alkaline Phosphatase 110 U/L (46-116); BUN 15 mg/dL (7-18); Bilirubin, Total 0.5 mg/dL (0.2-1.0); CREATININE 1.5 mg/dL (0.55-1.02); Calcium 9.3 mg/dL (8.5-10.1); Chloride 97 mmol/L (98-107); Estimated GFR 35.45 (mL/min/1.73m2); Glucose 141 mg/dL (74-106); NT-proBNP 369 pg/mL (<300); Potassium 3.4 mmol/L (3.5-5.1); Sodium 134 mmol/L (136-145); Total Protein 8.2 g/dL (6.4-8.2); Troponin I < 50 ng/L (< or =60)
[2023-09-12 18:14] LABS: Magnesium 0.7 mg/dL (1.8-2.4)
[2023-09-12] MEDS: PIPERACILLIN/TAZO 4.5 GM in Normal Saline 100 ML IVPB (18:22)
[2023-09-12 18:26] LABS: COVID-19 PCR Negative (Negative); Influenza A PCR Negative (Negative); Influenza B PCR Negative (Negative); RSV PCR Negative (Negative)
[2023-09-12 18:27] LABS: Source NASOPHARYNX
[2023-09-12] MEDS: MAGNESIUM SULFATE 2 GM/50 ML BAG IVPB (18:53)
--- NOTE | 2023-09-12 19:11 | NUR.NOTE ---
Nursing Note: Pt arrived to the ED via walk-in. The pt states she was seen by her MD today for increased SOB and decreased SpO2. Pt states she does not use any O2 at home and with ambulation she was SpO2 78%. Pt has congested cough with rales. Placed on 2L nc and Spo2 88%, increased to 4L, s/p duo neb tx NC decreased back to 2L, pt states that she feels better after the neb, but still has congested cough. SpO2 88%, per provider pt returned to 3L NC, IV abx infused, IV Mag 2g infusing. pt aware of admission. Hospitalist at bedside
--- NOTE | 2023-09-12 19:23 | W.PM.HP.N ---
Date of service: 09/12/23 Time of Service: 19:23 Assessment and Plan Assessment and plan (1) Pneumonia: Status: Acute Assessment and plan: 1. Pneumonia/COPD. Symptomatically much improved, though still has oxygen requirement. Will continue antibiotics (will switch out to Rocephin/Zithro, I see no indication for Vanco), check urinary Legionella antigen; and continue nebs and steroids. 2. Hypomag -- likely diuretics plus PPI. Will recheck following MgSO4 3. HTN: will hold JOSE/diuretic until certain henmodynamics stable Reviewed ADs, requests DNR/DNI History of Present Illness History of Present Illness Chief Complaint: cough, SOB Narrative: 78 female with COPD, former smoker -- reports 2-3 days of dry cough and SOB. Seen Urgent Care, fever (100.x) and hypoxia noted and sent to ER for evaluation. In ER initial eval of note for sats in 79s;white count 19; negative viral swab; and CXR showing bibasilar infiltrates. Mg also 0.7. Cultures obtained and patient given Vanco and cefepime, along with duonebs and steroids. States she feels much better, virtually back to her normal self. Note that her home oximeter readings are generally around 90 -- on RA. Here in ER she is maintaining 89-90 on 3L. Review of Systems Narrative: per HPI PFSH All Active Problems (Updated 09/12/23 @ 19:31 by Jose Aceves MD) Pneumonia (Acute) Edema (Acute) Pain, foot (Acute) Corns and callosities (Acute) Nail dystrophy (Acute) Ingrowing nail (Acute) Hypertension (Chronic) COPD (chronic obstructive pulmonary disease) (Chronic) Stage II in 2021. Hyperlipemia (Acute) Abdominal mass (Acute) AAA (abdominal aortic aneurysm) (Acute) 2.9cm in 2020 Hernia (Chronic) Medical History Ventral hernia Chronic cough Prediabetes History of tobacco use significant use; 72-[id number]-[id number] history; quit in 2009 SOB (shortness of breath) Family history of early CAD Elevated blood pressure reading Surgical History Ventral hernia without obstruction or gangrene (~06/2023) Social History Smoking/Tobacco Use Status: Former Tobacco Use Quit Date: 08/27/09 Pack-years: 50 Smoking risk assessment performed?: Yes Alcohol Intake: current Alcohol Intake frequency: a few times a week Drug use: Never Substance use type: does not use Housing: apartment Current gender identity: female Do you feel safe at home: Yes Do you feel safe in your relationship?: Yes Meds Allergies and Home Medications Allergies Allergy/AdvReac Type Severity Reaction Status Date / Time fish oil Allergy Unknown Verified 09/12/23 17:32 codeine AdvReac Mild Nausea Verified 09/12/23 17:32 Home Medications Medication Instructions Recorded Confirmed Type albuterol sulfate 90 mcg/actuation 2 puff inhalation Q6H PRN 05/25/20 09/12/23 History aerosol inhaler (ProAir HFA) amlodipine 10 mg tablet 10 mg PO DAILY 09/04/22 09/12/23 History cetirizine 10 mg tablet (All Day 10 mg PO DAILY 09/04/22 09/12/23 History Allergy (cetirizine)) esomeprazole magnesium 20 mg 20 mg PO DAILY 09/04/22 09/12/23 History capsule,delayed release lisinopril 10 mg tablet 20 mg PO DAILY 09/04/22 09/12/23 History rosuvastatin 20 mg tablet 20 mg PO DAILY 09/04/22 09/12/23 History fluticasone propionate 230 2 puff inhalation BID 11/30/22 09/12/23 History mcg-salmeterol 21 mcg/actuation HFA inhaler (Advair HFA) hydrochlorothiazide 12.5 mg tablet 12.5 mg PO DAILY 11/30/22 09/12/23 History Exam Narrative Exam Narrative: 114/52, 91, 36.1 (after APAP), 18, 90% 3L NC. HEENT atraumatic; neck supple; lungs diffuse coarse wheeze; heart RRR; abdomen soft and NT; extremities w/o edema; neuro Ox3, lucid, moves all 4s Results Labs 09/12/23 17:39 09/12/23 17:39 Labs: Laboratory Results - last 24 hr 09/12/23 09/12/23 09/12/23 17:39 17:39 17:39 WBC 19.62 H RBC 4.35 Hgb 12.6 Hct 40.0 MCV 92 MCH 29.0 MCHC 31.5 L RDW 13.2 Plt Count 329 MPV 11.0 Immature Gran % 0.0 Neutrophils % 79.0 Lymphocytes % 18.0 Monocytes % 3.0 Eosinophils % 0.0 Basophils % 0.0 Nucleated RBC % 0.0 Absolute Neutrophils 15.50 H Absolute Lymphocytes 3.53 H Absolute Monocytes 0.59 Absolute Eosinophils 0.00 Absolute Basophils 0.00 RBC Morphology Normal VBG pH 7.38 VBG pCO2 40 L VBG pO2 35 VBG HCO3 24 VBG Total CO2 22 L VBG O2 Saturation 70 VBG Base Excess -2 Sodium 134 L Potassium 3.4 L Chloride 97 L Carbon Dioxide 23.0 Anion Gap 14.0 H BUN 15 Creatinine 1.5 H Est GFR (CKD-EPI 2020) 35.45 Glucose 141 H Calcium 9.3 Magnesium 0.7 L Total Bilirubin 0.5 AST 17 ALT 11 L Alkaline Phosphatase 110 Troponin I Cancelled < 50 NT-Pro-B Natriuret Pep Cancelled 369 H Total Protein 8.2 Albumin 3.2 L COVID-19 Source NASOPHARYNX SARS-CoV-2 (PCR) Negative Influenza Type A (PCR) Negative Influenza Type B (PCR) Negative RSV (PCR) Negative Last Vital Signs Temp 36.1 C L 09/12/23 17:33 Pulse 91 H 09/12/23 19:18 Resp 18 09/12/23 19:15 BP 114/52 L 09/12/23 19:18 Pulse Ox 90 L 09/12/23 19:19 Time Spent Time spent with Patient: 40-54 minutes Time was spent: preparing to see the patient(eg.review tests), obtaining and/or reviewing separately otained hiistory, ordering medications,tests, procedures, referring, communicating with other health spiritual care coordinator and indepentently interpreting results
--- NOTE | 2023-09-12 19:36 | ED.GENADUL_ITS ---
HPI General Date/Time Provider Initiated Documentation: 09/12/23 17:30 . Limitations to Documentation: physical limitation . Information obtained by: patient . HPI Narrative: 78-year-old female with past medical history of AAA, COPD, hypertension presents for evaluation of hypoxia, cough and shortness of breath. Patient went to urgent care today and was referred to the emergency department for further evaluation. She reports that she initially got sick on , was sick for few days with cough and shortness of breath, but symptoms resolved. Symptoms then returned 4 days ago and have been progressively worsening. She reports significant shortness of breath. Cough is not productive. She reports that she measures her oxygen saturation and it is normally around 88 to 90%. She had an oxygen saturation of 74% at urgent care. She also had a fever at urgent care and was given Tylenol. She did not know that she has had a fever at home. She does not use oxygen or nebulizer at home but was given albuterol at the urgent care and reports significant improvement in how she felt. No known sick contacts. Reports long-term smoking history, but has not smoked in 13 years. Related Data Home Medications Medication Instructions Recorded Confirmed albuterol sulfate 90 mcg/actuation 2 puff inhalation Q6H PRN 05/25/20 09/12/23 aerosol inhaler (ProAir HFA) amlodipine 10 mg tablet 10 mg PO DAILY 09/04/22 09/12/23 cetirizine 10 mg tablet (All Day 10 mg PO DAILY 09/04/22 09/12/23 Allergy (cetirizine)) esomeprazole magnesium 20 mg 20 mg PO DAILY 09/04/22 09/12/23 capsule,delayed release lisinopril 10 mg tablet 20 mg PO DAILY 09/04/22 09/12/23 rosuvastatin 20 mg tablet 20 mg PO DAILY 09/04/22 09/12/23 fluticasone propionate 230 2 puff inhalation BID 11/30/22 09/12/23 mcg-salmeterol 21 mcg/actuation HFA inhaler (Advair HFA) hydrochlorothiazide 12.5 mg tablet 12.5 mg PO DAILY 11/30/22 09/12/23 Allergies Allergy/AdvReac Type Severity Reaction Status Date / Time fish oil Allergy Unknown Verified 09/12/23 17:32 codeine AdvReac Mild Nausea Verified 09/12/23 17:32 General Stated Complaint: RespSymp JOSÉ MIGUEL: 2 PFSH All Active Problems (Updated 09/12/23 @ 19:47 by Sandro Garcia MD) Hypomagnesemia (Acute) Hypoxia (Acute) Pneumonia (Acute) Edema (Acute) Pain, foot (Acute) Corns and callosities (Acute) Nail dystrophy (Acute) Ingrowing nail (Acute) Hypertension (Chronic) COPD (chronic obstructive pulmonary disease) (Chronic) Stage II in 2021. Hyperlipemia (Acute) Abdominal mass (Acute) AAA (abdominal aortic aneurysm) (Acute) 2.9cm in 2019 Hernia (Chronic) Medical History Ventral hernia Chronic cough Prediabetes History of tobacco use significant use; 01-amob-dnod history; quit in 2009 SOB (shortness of breath) Family history of early CAD Elevated blood pressure reading Surgical History Ventral hernia without obstruction or gangrene (~06/2023) Social History Smoking/Tobacco Use Status: Former Tobacco Use Quit Date: 08/27/09 Pack-years: 50 Smoking risk assessment performed?: Yes Alcohol Intake: current Alcohol Intake frequency: a few times a week Drug use: Never Substance use type: does not use Housing: apartment Current gender identity: female Do you feel safe at home: Yes Do you feel safe in your relationship?: Yes Exam Narrative Exam Narrative: Review of Systems: All systems reviewed & are unremarkable except as noted in HPI and below Well-developed, mild distress distress Hypoxia NACT PERRL, normal conjunctiva RRR Hypoxia, increased respiratory effort, shortness of breath noted with speaking or any movement in the bed, coarse breath sounds with crackles at the bases noted bilaterally. Nondistended abdomen, nontender Extremities w/o deformity, no cyanosis, no edema No rashes or lesions. no focal neurologic deficits Appropriate mood and affect Course Vital Signs Vital signs: Vital Signs Pulse Oximetry 79 L 09/12/23 17:27 Temperature 36.1 C L 09/12/23 17:33 Temperature Source Temporal Artery Scan 09/12/23 17:33 Pulse 91 H 09/12/23 19:18 Pulse 103 H 09/12/23 17:31 Respiratory Rate 18 09/12/23 19:15 Respiratory Effort Short of Breath 09/12/23 18:31 Respiratory Depth Deep 09/12/23 18:31 Blood Pressure 114/52 L 09/12/23 19:18 Blood Pressure Mean 75 09/12/23 17:31 Blood Pressure Position Supine 09/12/23 17:33 Pulse Oximetry 90 L 09/12/23 19:19 Oxygen Delivery Method Nasal Cannula 09/12/23 19:19 Oxygen Flow Rate 2 09/12/23 18:31 Pain Level 4 09/12/23 17:33 Comment rib spasm from coughing 09/12/23 17:33 Lab/Test Results Lab/Test Results: 09/12/23 18:09 Blood Blood Culture - Pending 09/12/23 17:55 Blood Blood Culture - Pending Laboratory Tests Range/Units 09/12/23 09/12/23 09/12/23 17:39 17:39 17:39 WBC (4.4-10.8) 10^3/uL 19.62 H RBC (3.93-5.22) 10^6/uL 4.35 Hgb (11.2-15.7) g/dL 12.6 Hct (36.0-46.0) % 40.0 MCV (80-95) fL 92 MCH (27.0-33.0) pg 29.0 MCHC (32.0-36.0) % 31.5 L RDW (11.7-14.6) % 13.2 Plt Count (130-400) 10^3/uL 329 MPV (8.0-11.0) fL 11.0 Immature Gran % 0.0 Neutrophils % 79.0 Lymphocytes % 18.0 Monocytes % 3.0 Eosinophils % 0.0 Basophils % 0.0 Nucleated RBC % (0.0-0.3) % 0.0 Absolute Neutrophils (1.2-6.7) 10^3/uL 15.50 H Absolute Lymphocytes (1.2-3.4) 10^3/uL 3.53 H Absolute Monocytes (0.1-0.8) 10^3/uL 0.59 Absolute Eosinophils (0.0-0.7) 10^3/uL 0.00 Absolute Basophils (0.0-0.2) 10^3/uL 0.00 RBC Morphology Normal VBG pH (7.31-7.41) 7.38 VBG pCO2 (41-51) mmHg 40 L VBG pO2 mmHg 35 VBG HCO3 (23-28) mmol/L 24 VBG Total CO2 (24-29) mmol/L 22 L VBG O2 Saturation % 70 VBG Base Excess (-2-3) mmol/L -2 Sodium (136-145) mmol/L 134 L Potassium (3.5-5.1) mmol/L 3.4 L Chloride (98-107) mmol/L 97 L Carbon Dioxide (21.0-32.0) mmol/L 23.0 Anion Gap (3-11) mmol/L 14.0 H BUN (7-18) mg/dL 15 Creatinine (0.55-1.02) mg/dL 1.5 H Est GFR (CKD-EPI 2020) (mL/min/1.73m2) 35.45 Glucose (74-106) mg/dL 141 H Calcium (8.5-10.1) mg/dL 9.3 Magnesium (1.8-2.4) mg/dL 0.7 L Total Bilirubin (0.2-1.0) mg/dL 0.5 AST (15-37) U/L 17 ALT (14-59) U/L 11 L Alkaline Phosphatase (46-116) U/L 110 Troponin I Cancelled < 50 NT-Pro-B Natriuret Pep Cancelled 369 H Total Protein (6.4-8.2) g/dL 8.2 Albumin (3.4-5.0) g/dL 3.2 L COVID-19 Source NASOPHARYNX SARS-CoV-2 (PCR) (Negative) Negative Influenza Type A (PCR) (Negative) Negative Influenza Type B (PCR) (Negative) Negative RSV (PCR) (Negative) Negative Medical Decision Making Emergent evaluation of hypoxia and shortness of breath. Initial differential includes COPD exacerbation, pneumonia, viral illness. Patient was febrile at urgent care, significantly hypoxic there. Hypoxia has not improved. She is requiring additional oxygen support at this time. Will start lab work, cultures, broad-spectrum antibiotics. Lab work reviewed. White blood cell count significantly elevated with shift. No anemia. Magnesium very low. IV replacement ordered. VBG reviewed, no significant CO2 retention. I do not think that the patient needs BiPAP at this time. Otherwise her electrolytes are not significantly deranged. Creatinine slightly elevated but appears to be baseline. BNP also slightly elevated, no prior for comparison. Echo from 2019 reviewed. Borderline LVH with EF of 55% troponin not elevated. Chest x-ray reviewed and independently interpreted, there appears to be some cardiomegaly, pleural effusion in bibasilar inf iltrates. Patient reports significant improvement in symptoms after DuoNeb. Still requiring oxygen. Discussed with hospitalist, will admit the patient for COPD exacerbation, pneumonia for further bronchodilators antibiotics and management. Medical Records Medical records reviewed: Yes I reviewed the patient's medical records. Lab Data Lab results reviewed: Yes I reviewed the patient's lab results. ECG Data Attestation: I personally reviewed and interpreted this ECG (s) as follows: Interpretation: Sinus 89, normal axis no acute ischemic changes Quality:SDOH Health Related Social Needs: No Data to Display Critical Care Time Critical Care Time Critical Care Time: Yes Total Critical Care Time: 35 Attestation: CRITICAL CARE Upon my evaluation, this patient had a high probability of imminent or life- threatening deterioration due to acute respiratory failure which required my direct attention, intervention, and personal management. I have personally provided 35 minutes of critical care time exclusive of time spent on separately billable procedures. Time includes review of laboratory data, radiology results, discussion with consultants, and monitoring for potential decompensation. Interventions were performed as documented above Discharge Plan Disposition Patient Disposition: Admit to [facility] Condition: Stable Discharge Details Chief Complaint: RespSymp Clinical Impression: Hypoxia, Pneumonia, COPD (chronic obstructive pulmonary disease), Hypomagnese kevin Primary Care Provider: JATINDER WOODALL ED Provider: Sandro Garcia Home Meds and New Rx's Prescriptions: No Action esomeprazole magnesium 20 mg capsule,delayed release(DR/EC) 20 mg PO DAILY amlodipine 10 mg tablet 10 mg PO DAILY rosuvastatin 20 mg tablet 20 mg PO DAILY cetirizine [All Day Allergy (cetirizine)] 10 mg tablet 10 mg PO DAILY albuterol sulfate [ProAir HFA] 90 mcg/actuation HFA aerosol inhaler 2 puff inhalation Q6H PRN lisinopril 10 mg tablet 20 mg PO DAILY fluticasone propion-salmeterol [Advair HFA] 230-21 mcg/actuation HFA aerosol inhaler 2 puff inhalation BID hydrochlorothiazide 12.5 mg tablet 12.5 mg PO DAILY
[2023-09-12] MEDS: VANCOMYCIN IVPB (20:08)
[2023-09-12] MEDS: NORMAL SALINE IVPB (20:08)
[2023-09-12 21:22] LABS: Troponin I < 50 ng/L (< or =60)
[2023-09-12] MEDS: Normal Saline Flush 10 ML SYR IVP (22:07)
[2023-09-12] MEDS: methylPREDNISolone SUCC 40 MG VIAL IVP (22:07)
[2023-09-12] MEDS: CEFEPIME 1 GM in Normal Saline 50 ML IVPB (22:21)
[2023-09-12] MEDS: AZITHROMYCIN 500 MG in Normal Saline 250 ML 250 MG IVPB (22:21)
[2023-09-13] MEDS: methylPREDNISolone SUCC 40 MG VIAL IVP ×2 (02:59→12:07)
[2023-09-13] MEDS: Albuterol/Ipratropium 3 ML UPD VIAL UPD ×3 (02:59→20:25)
[2023-09-13] MEDS: CEFEPIME 1 GM in Normal Saline 50 ML IVPB ×2 (05:09→13:28)
[2023-09-13 06:37] LABS: HCT 33.3 % (36.0-46.0); HGB 10.9 g/dL (11.2-15.7); MCH 29.5 pg (27.0-33.0); MCHC 32.7 % (32.0-36.0); MCV 90 fL (80-95); MPV 10.7 fL (8.0-11.0); Platelet Count 308 10^3/uL (130-400); RBC 3.69 10^6/uL (3.93-5.22); RDW-SD 43.1 fL; WBC 13.01 10^3/uL (4.4-10.8)
[2023-09-13 06:57] LABS: BUN 22 mg/dL (7-18); CREATININE 1.4 mg/dL (0.55-1.02); Calcium 8.8 mg/dL (8.5-10.1); Chloride 99 mmol/L (98-107); Estimated GFR 38.51 (mL/min/1.73m2); Glucose 203 mg/dL (74-106); Magnesium 1.6 mg/dL (1.8-2.4); Potassium 3.3 mmol/L (3.5-5.1); Sodium 134 mmol/L (136-145)
[2023-09-13 07:34] VITALS: BP 124/70; PULSE 84; RESP 17; TEMP 36.9; O2SAT 91
--- NOTE | 2023-09-13 08:37 | PDOC.CMIN ---
Date of service: 09/13/23 Time of Service: 08:38 Care Management Initial Assmt Initial Assessment REASON FOR HOSPITALIZATION:: Pneumonia, COPD PREVIOUS FUNCTIONAL STATUS/SOCIAL/FAMILY SUPPORTS:: Resides in [facility], . Sons Jacqui and Tony Crandall reside locally as well as close friends. CURRENT FUNCTIONAL STATUS:: Up independently. ADVANCE DIRECTIVES:: None on file. Has patient been provided with info about the portal/API?: Yes Did the patient sign up for the portal?: No CODE STATUS:: DNR/DNI INSURANCE COVERAGE / FINANCIAL ISSUES:: Medicare PRIMARY CARE PHYSICIAN:: Sheeba Byers POTENTIAL DISCHARGE NEEDS:: Follow up appointments. PATIENT/FAMILY EDUCATION NEEDS:: Review discharge instructions, discuss Ask Me Three. ANTICIPATED BARRIERS TO DISCHARGE:: None identified. TRANSPORTATION:: Via private vehicle with family. PLAN:: Carmina will return home when ready per MD. She will follow up with her PCP and plan of care as prescribed and transport via private vehicle with family. PFSH All Active Problems (Updated 09/13/23 @ 13:43 by Kourtney Cervantes NP) Discharge planning issues (Acute) Acute kidney injury (Acute) Severe sepsis (Acute) Hypomagnesemia (Acute) Hypoxia (Acute) Pneumonia (Acute) Edema (Acute) Pain, foot (Acute) Corns and callosities (Acute) Nail dystrophy (Acute) Ingrowing nail (Acute) Hypertension (Chronic) COPD (chronic obstructive pulmonary disease) (Chronic) Stage II in 2021. Hyperlipemia (Acute) Abdominal mass (Acute) AAA (abdominal aortic aneurysm) (Acute) 2.9cm in 2020 Hernia (Chronic) Medical History Ventral hernia Chronic cough Prediabetes History of tobacco use significant use; 67-onvi-ibbt history; quit in 2009 SOB (shortness of breath) Family history of early CAD Elevated blood pressure reading Surgical History Ventral hernia without obstruction or gangrene (~06/2023) Social History Smoking/Tobacco Use Status: Former Tobacco Use Quit Date: 08/27/09 Pack-years: 50 Smoking risk assessment performed?: Yes Alcohol Intake: current Alcohol Intake frequency: a few times a week Drug use: Never Substance use type: does not use Housing: apartment Current gender identity: female Do you feel safe at home: Yes Do you feel safe in your relationship?: Yes SDOH(Care Management) Screening Will the Patient Participate in the Screening?: Yes Do you worry about having a steady place to live?: no Problems where you live: no known problems In the past 12 months, have you had to go without electric, gas, oil or water in your home?: no Have you or anyone in your house had to go without enough food to eat?: no Has lack of transportation kept you from medical appointments or from doing things needed for daily living?: no Has anyone in your support network made you feel unsafe for any reason?: no
[2023-09-13] MEDS: Cetirizine 10 MG TAB PO (08:58)
[2023-09-13] MEDS: Rosuvastatin 20 MG TAB PO (08:59)
[2023-09-13] MEDS: Esomeprazole 20 MG CAPCR PO (09:00)
[2023-09-13] MEDS: Potassium Chloride 20 MEQ TABCR 40 MEQ PO (09:00)
[2023-09-13] MEDS: Normal Saline Flush 10 ML SYR IVP ×2 (09:02→20:31)
--- NOTE | 2023-09-13 13:23 | W.PM.PROGNOT ---
Date of Service Date of service: 09/13/23 Time of Service: 13:24 Assessment and Plan Assessment and plan (1) Severe sepsis: Status: Acute Assessment and plan: source pneumonia responding to treatment, hemodynamically stable. continue current treatment (2) Pneumonia: Status: Acute Assessment and plan: still has oxygen requirement. Will continue Rocephin/Zithro day 2/5 check urinary Legionella antigen continue nebs and steroids. (3) COPD (chronic obstructive pulmonary disease): Status: Chronic Assessment and plan: see above (4) Acute kidney injury: Status: Acute Assessment and plan: resolving with IV fluids avoid nephrotoxic drugs renal dose as needed. continue to follow (5) Hypomagnesemia: Status: Acute Assessment and plan: replete and follow (6) Hypertension: Status: Chronic Assessment and plan: lisinopril has been on hold for low readings and in setting of NORA continue to monitor and resume when appropriate. (7) Discharge planning issues: Status: Acute Assessment and plan: DVT prophylaxis added anticipate discharge to home when medically stable, no services anticipated discussed with DR Stahl Subjective Subjective Interval history since last seen: reports feeling much better today, still requiring oxygen, having productive cough. Exam Narrative Exam Narrative: well appearing elderly female of stated age in no acute distress, sitting up in chair head atraumatic, normocephalic neck supple, no jvd resp even and unlabored, coarse breath sounds bilateral bases right greater than left, exp wheeze CV: RRR abd benign ext moves all extremities, no edema Objective Last Vital Signs Temp 36.9 C 09/13/23 07:34 Pulse 84 09/13/23 07:34 Resp 17 09/13/23 07:34 BP 124/70 09/13/23 07:34 Pulse Ox 91 L 09/13/23 07:34 Laboratory Results - last 24 hr 09/12/23 09/12/23 09/12/23 17:39 17:39 17:39 WBC 19.62 H RBC 4.35 Hgb 12.6 Hct 40.0 MCV 92 MCH 29.0 MCHC 31.5 L RDW 13.2 Plt Count 329 MPV 11.0 Immature Gran % 0.0 Neutrophils % 79.0 Lymphocytes % 18.0 Monocytes % 3.0 Eosinophils % 0.0 Basophils % 0.0 Nucleated RBC % 0.0 Absolute Neutrophils 15.50 H Absolute Lymphocytes 3.53 H Absolute Monocytes 0.59 Absolute Eosinophils 0.00 Absolute Basophils 0.00 RBC Morphology Normal VBG pH 7.38 VBG pCO2 40 L VBG pO2 35 VBG HCO3 24 VBG Total CO2 22 L VBG O2 Saturation 70 VBG Base Excess -2 Sodium 134 L Potassium 3.4 L Chloride 97 L Carbon Dioxide 23.0 Anion Gap 14.0 H BUN 15 Creatinine 1.5 H Est GFR (CKD-EPI 2020) 35.45 Glucose 141 H Calcium 9.3 Magnesium 0.7 L Total Bilirubin 0.5 AST 17 ALT 11 L Alkaline Phosphatase 110 Troponin I Cancelled < 50 NT-Pro-B Natriuret Pep Cancelled 369 H Total Protein 8.2 Albumin 3.2 L COVID-19 Source NASOPHARYNX SARS-CoV-2 (PCR) Negative Influenza Type A (PCR) Negative Influenza Type B (PCR) Negative RSV (PCR) Negative 09/12/23 09/13/23 20:55 06:20 WBC 13.01 H RBC 3.69 L Hgb 10.9 L Hct 33.3 L MCV 90 MCH 29.5 MCHC 32.7 RDW 13.0 Plt Count 308 MPV 10.7 Immature Gran % Neutrophils % Lymphocytes % Monocytes % Eosinophils % Basophils % Nucleated RBC % Absolute Neutrophils Absolute Lymphocytes Absolute Monocytes Absolute Eosinophils Absolute Basophils RBC Morphology VBG pH VBG pCO2 VBG pO2 VBG HCO3 VBG Total CO2 VBG O2 Saturation VBG Base Excess Sodium 134 L Potassium 3.3 L Chloride 99 Carbon Dioxide 23.0 Anion Gap 12.0 H BUN 22 H Creatinine 1.4 H Est GFR (CKD-EPI 2020) 38.51 Glucose 203 H Calcium 8.8 Magnesium 1.6 L Total Bilirubin AST ALT Alkaline Phosphatase Troponin I < 50 NT-Pro-B Natriuret Pep Total Protein Albumin COVID-19 Source SARS-CoV-2 (PCR) Influenza Type A (PCR) Influenza Type B (PCR) RSV (PCR) Time Spent with Patient Time Spent with Patient: 35-49 minutes Time was spent: preparing to see the patient(eg.review tests), obtaining and/or reviewing separately otained hiistory, ordering medications,tests, procedures, indepentently interpreting results and counseling the patient
[2023-09-13 13:38] VITALS: PULSE 78; RESP 8; RESP 9; O2SAT 96
--- NOTE | 2023-09-13 14:30 | CHAPLAIN ---
Carmina was resting in bed when I visited. She said she is feeling much better today. Her daughter brought her in yesterday and stayed until about 9 p.m., nad Carmina expect family members will be in to visit later today. She seems to be comfortable being here. I explained my role and offered support.
[2023-09-13 15:09] VITALS: BP 151/74; PULSE 88; RESP 17; TEMP 36.8; O2SAT 92
[2023-09-13 20:25] VITALS: PULSE 77; RESP 18; RESP 5; RESP 9; O2SAT 93
[2023-09-13] MEDS: cefTRIAXone 1 GM/50 ML BAG IVPB (20:30)
[2023-09-13] MEDS: Doxycycline Hyclate 100 MG CAP PO (20:30)
[2023-09-13 20:55] VITALS: PULSE 78; RESP 18; RESP 5; O2SAT 93
[2023-09-13 23:47] LABS: Legionella Ag Detection Urine Negative (Negative)
[2023-09-14] VITALS (13 sets, daily range): BP systolic 133–144; BP diastolic 70–81; PULSE 72–110; RESP 2–24; TEMP 36–36.6; O2SAT 87–94
[2023-09-14] MEDS: Albuterol/Ipratropium 3 ML UPD VIAL UPD ×4 (01:22→20:16)
[2023-09-14] MEDS: Acetaminophen 500 MG TAB 1000 MG PO (02:31)
[2023-09-14] MEDS: Doxycycline Hyclate 100 MG CAP PO ×2 (08:00→20:48)
[2023-09-14] MEDS: Cetirizine 10 MG TAB PO (08:01)
[2023-09-14] MEDS: Rosuvastatin 20 MG TAB PO (08:01)
[2023-09-14] MEDS: Normal Saline Flush 10 ML SYR IVP ×2 (08:01→20:48)
[2023-09-14] MEDS: predniSONE 20 MG TAB 40 MG PO (08:01)
[2023-09-14] MEDS: Esomeprazole 20 MG CAPCR PO (08:01)
[2023-09-14] MEDS: Enoxaparin 40 MG/0.4 ML SYR SC (08:01)
[2023-09-14 08:23] LABS: Abs Immature Grans 0.17 10^3/uL (0.0-0.06); Basophils % 0.2; HGB 11.3 g/dL (11.2-15.7); Immature Grans % 0.7; Lymphocytes % 7.2; MCH 30.5 pg (27.0-33.0); MCHC 34.2 % (32.0-36.0); MCV 89 fL (80-95); MPV 10.3 fL (8.0-11.0); Monocytes % 5.2; Neutrophils % 86.7; Platelet Count 396 10^3/uL (130-400); RDW 13.1 % (11.7-14.6); RDW-SD 42.9 fL; WBC 23.66 10^3/uL (4.4-10.8)
[2023-09-14 08:32] LABS: Absolute Basophil Count 0.05 10^3/uL (0.0-0.2); Absolute Monocyte Count 1.23 10^3/uL (0.1-0.8); Absolute Neutrophil Count 20.51 10^3/uL (1.2-6.7)
[2023-09-14 08:41] LABS: BUN 26 mg/dL (7-18); CREATININE 1.2 mg/dL (0.55-1.02); Calcium 9.1 mg/dL (8.5-10.1); Chloride 97 mmol/L (98-107); Estimated GFR 46.33 (mL/min/1.73m2); Glucose 119 mg/dL (74-106); Magnesium 1.4 mg/dL (1.8-2.4); Potassium 4.1 mmol/L (3.5-5.1); Sodium 131 mmol/L (136-145)
[2023-09-14 09:24] LABS: Diff Comment Agrees w/ Instrument; RBC Morphology Normal
--- NOTE | 2023-09-14 11:28 | PDOC.CMPRO ---
Date of service: 09/14/23 Time of Service: 11:28 Care Management Progress Note Progress Note Text Progress Note Text: S/O: Carmina remains inpatient, on IV ABX for pneumonia. She remains pleasant in interaction and is up independently. CM continues to follow. A: 78 year old female admitted to [facility] 09/14/23 for Pneumonia, COPD P: Per Hospitalist, anticipate at least another day of IV ABX prior to returning home. No additional services anticipated at this time. CM continues to follow.
--- NOTE | 2023-09-14 16:26 | W.PM.PROGNOT ---
Date of Service Date of service: 09/14/23 Time of Service: 16:26 Assessment and Plan Assessment and plan (1) Severe sepsis: Status: Acute Assessment and plan: source pneumonia responding to treatment, hemodynamically stable. continue current treatment (2) Pneumonia: Status: Acute Assessment and plan: still has oxygen requirement. Will continue Rocephin/Zithro day 3/5 urinary Legionella antigen negative leukocytosis likely secondary to high dose IV steroids continue nebs and taper steroids to oral burst. (3) COPD (chronic obstructive pulmonary disease): Status: Chronic Assessment and plan: see above (4) Acute kidney injury: Status: Acute Assessment and plan: resolved with IV fluids avoid nephrotoxic drugs renal dose as needed. continue to follow (5) Hypomagnesemia: Status: Acute Assessment and plan: replete and follow (6) Hypertension: Status: Chronic Assessment and plan: lisinopril has been on hold for low readings and in setting of NORA continue to monitor and resume when appropriate. (7) Discharge planning issues: Status: Acute Assessment and plan: DVT prophylaxis added anticipate discharge to home when medically stable, no services anticipated discussed with DR Granger Subjective Subjective Patient reports: tolerating liquids well and afebrile Interval history since last seen: Unable to be weaned from oxygen patient not feeling well today with decreased energy and appetite. No fever, continues to have cough Exam Narrative Exam Narrative: fatigued appearing elderly female of stated age in no acute distress, head atraumatic, normocephalic neck supple, no jvd resp even and unlabored, dim bilateral bases, occ faint exp wheeze CV: RRR abd benign ext moves all extremities, no edema Objective Last Vital Signs Temp 36.6 C 09/14/23 15:39 Pulse 88 09/14/23 15:39 Resp 17 09/14/23 15:39 BP 133/74 09/14/23 15:39 Pulse Ox 90 L 09/14/23 15:39 Laboratory Results - last 24 hr 09/12/23 09/14/23 22:44 08:12 WBC 23.66 H RBC 3.70 L Hgb 11.3 Hct 33.0 L MCV 89 MCH 30.5 MCHC 34.2 RDW 13.1 Plt Count 396 MPV 10.3 Immature Gran % 0.7 Neutrophils % 86.7 Lymphocytes % 7.2 Monocytes % 5.2 Eosinophils % 0.0 Basophils % 0.2 Nucleated RBC % 0.0 Absolute Neutrophils 20.51 H Absolute Lymphocytes 1.70 Absolute Monocytes 1.23 H Absolute Eosinophils 0.00 Absolute Basophils 0.05 RBC Morphology Normal Sodium 131 L Potassium 4.1 Chloride 97 L Carbon Dioxide 24.0 Anion Gap 10.0 BUN 26 H Creatinine 1.2 H Est GFR (CKD-EPI 2020) 46.33 Glucose 119 H Calcium 9.1 Magnesium 1.4 L Urine Legionella Ag Negative Time Spent with Patient Time Spent with Patient: 35-49 minutes Time was spent: preparing to see the patient(eg.review tests), obtaining and/or reviewing separately otained hiistory, ordering medications,tests, procedures and indepentently interpreting results
[2023-09-14] MEDS: MAGNESIUM SULFATE 4 GM/100 ML BAG IVPB (19:59)
[2023-09-14] MEDS: Magnesium Chloride 64 MG TABCR PO (20:48)
[2023-09-14] MEDS: cefTRIAXone 1 GM/50 ML BAG IVPB (20:49)
[2023-09-15] VITALS (10 sets, daily range): BP systolic 133–146; BP diastolic 76–81; PULSE 74–112; RESP 2–20; TEMP 36.4–36.9; O2SAT 83–96
[2023-09-15] MEDS: Albuterol/Ipratropium 3 ML UPD VIAL UPD ×4 (01:51→20:09)
[2023-09-15] MEDS: Esomeprazole 20 MG CAPCR PO (07:46)
[2023-09-15 08:00] LABS: Abs Immature Grans 0.22 10^3/uL (0.0-0.06); Absolute Eosinophil Count 0.02 10^3/uL (0.0-0.7); Absolute Lymphocyte Count 3.53 10^3/uL (1.2-3.4); Basophils % 0.3; Eosinophils % 0.1; HCT 36.2 % (36.0-46.0); Immature Grans % 1.1; Lymphocytes % 16.9; MCH 29.6 pg (27.0-33.0); MCHC 33.1 % (32.0-36.0); MCV 89 fL (80-95); Monocytes % 8.4; Neutrophils % 73.2; Platelet Count 434 10^3/uL (130-400); RBC 4.06 10^6/uL (3.93-5.22); RDW-SD 42.5 fL; WBC 20.91 10^3/uL (4.4-10.8)
[2023-09-15 08:01] LABS: Absolute Basophil Count 0.06 10^3/uL (0.0-0.2); Absolute Monocyte Count 1.76 10^3/uL (0.1-0.8); Absolute Neutrophil Count 15.31 10^3/uL (1.2-6.7)
[2023-09-15 08:08] LABS: Anion Gap 9.2 mmol/L (3-11); BUN 18 mg/dL (7-18); CO2 27.8 mmol/L (21.0-32.0); Calcium 9.7 mg/dL (8.5-10.1); Chloride 102 mmol/L (98-107); Estimated GFR 57.66 (mL/min/1.73m2); Glucose 100 mg/dL (74-106); Magnesium 2.9 mg/dL (1.8-2.4); Potassium 3.8 mmol/L (3.5-5.1); Sodium 139 mmol/L (136-145)
[2023-09-15 08:14] LABS: Diff Comment Agrees w/ Instrument; RBC Morphology Normal
[2023-09-15 08:30] LABS: Procalcitonin < 0.1 ng/mL
[2023-09-15] MEDS: Mometasone 220 MCG 14 DOSE INHALER 2 PUFF IH ×2 (08:46→20:10)
[2023-09-15] MEDS: Normal Saline Flush 10 ML SYR IVP (08:59)
[2023-09-15] MEDS: Enoxaparin 40 MG/0.4 ML SYR SC (08:59)
[2023-09-15] MEDS: Magnesium Chloride 64 MG TABCR PO (09:00)
[2023-09-15] MEDS: Rosuvastatin 20 MG TAB PO (09:00)
[2023-09-15] MEDS: Doxycycline Hyclate 100 MG CAP PO ×2 (09:00→20:09)
[2023-09-15] MEDS: Cetirizine 10 MG TAB PO (09:00)
[2023-09-15] MEDS: predniSONE 20 MG TAB 40 MG PO (09:19)
--- NOTE | 2023-09-15 13:20 | W.PM.PROGNOT ---
Date of Service Date of service: 09/15/23 Time of Service: 13:20 Assessment and Plan Assessment and plan (1) Severe sepsis: Status: Resolved Assessment and plan: source pneumonia responding to treatment, hemodynamically stable. continue current treatment (2) Pneumonia: Status: Acute Assessment and plan: still has oxygen requirement, 87% on room air after talking with family on the phone urinary Legionella antigen negative leukocytosis likely secondary to high dose IV steroids continue nebs and taper steroids to oral burst. No IV - changed to cefpodoxime oral - day 1; rec 'd 3 d of ceftriaxone and continue doxy oral (3) COPD (chronic obstructive pulmonary disease): Status: Chronic Assessment and plan: see above (4) Acute kidney injury: Status: Acute Assessment and plan: resolved with IV fluids avoid nephrotoxic drugs renal dose as needed. continue to follow (5) Hypomagnesemia: Status: Acute Assessment and plan: replete and follow 2.9 today (6) Hypertension: Status: Chronic Assessment and plan: lisinopril has been on hold for low readings and in setting of NORA continue to monitor and resume when appropriate. (7) Discharge planning issues: Status: Acute Assessment and plan: DVT prophylaxis added anticipate discharge to home when medically stable, no services anticipated discussed with DR Granger Subjective Subjective Patient reports: no new complaints, tolerating liquids well and afebrile Interval history since last seen: Unable to be weaned from oxygen SPO2 ~ 90% Exam Narrative Exam Narrative: elderly female of stated age in no acute distress, sitting on the edge of the bed, conversant, pleasant. head atraumatic, normocephalic neck supple, no jvd resp even and unlabored, diminished bilateral bases CV: RRR abd benign ext moves all extremities, no edema Objective Last Vital Signs Temp 36.6 C 09/15/23 07:50 Pulse 83 09/15/23 08:46 Resp 20 09/15/23 07:50 BP 146/81 H 09/15/23 07:50 Pulse Ox 93 09/15/23 08:46 Laboratory Results - last 24 hr 09/15/23 07:53 WBC 20.91 H RBC 4.06 Hgb 12.0 Hct 36.2 MCV 89 MCH 29.6 MCHC 33.1 RDW 13.0 Plt Count 434 H MPV 10.0 Immature Gran % 1.1 Neutrophils % 73.2 Lymphocytes % 16.9 Monocytes % 8.4 Eosinophils % 0.1 Basophils % 0.3 Nucleated RBC % 0.0 Absolute Neutrophils 15.31 H Absolute Lymphocytes 3.53 H Absolute Monocytes 1.76 H Absolute Eosinophils 0.02 Absolute Basophils 0.06 RBC Morphology Normal Sodium 139 Potassium 3.8 Chloride 102 Carbon Dioxide 27.8 Anion Gap 9.2 BUN 18 Creatinine 1.0 Est GFR (CKD-EPI 2020) 57.66 Glucose 100 Calcium 9.7 Magnesium 2.9 H Procalcitonin < 0.1 Time Spent with Patient Time Spent with Patient: 35-49 minutes Time was spent: preparing to see the patient(eg.review tests), ordering medications,tests, procedures, referring, communicating with other health acute care certified nursing assistant, indepentently interpreting results, counseling the patient and care coordination
[2023-09-15] MEDS: Cefpodoxime 200 MG TAB PO (16:23)
[2023-09-16] VITALS (11 sets, daily range): BP systolic 146–154; BP diastolic 70–83; PULSE 78–110; RESP 3–24; TEMP 36.5–37.1; O2SAT 86–93
[2023-09-16] MEDS: Albuterol/Ipratropium 3 ML UPD VIAL UPD ×4 (01:29→21:03)
[2023-09-16] MEDS: Cefpodoxime 200 MG TAB PO ×2 (03:46→16:47)
[2023-09-16 06:57] LABS: Abs Immature Grans 0.51 10^3/uL (0.0-0.06); Absolute Lymphocyte Count 3.86 10^3/uL (1.2-3.4); HCT 35.2 % (36.0-46.0); HGB 11.6 g/dL (11.2-15.7); MCH 29.7 pg (27.0-33.0); MCV 90 fL (80-95); MPV 10.3 fL (8.0-11.0); Platelet Count 453 10^3/uL (130-400); RDW 13.2 % (11.7-14.6); RDW-SD 43.3 fL; WBC 17.53 10^3/uL (4.4-10.8)
[2023-09-16 07:14] LABS: Absolute Monocyte Count 1.23 10^3/uL (0.1-0.8); Myelocytes % 1
[2023-09-16 07:15] LABS: Anion Gap 7.1 mmol/L (3-11); BUN 18 mg/dL (7-18); CO2 28.9 mmol/L (21.0-32.0); Calcium 9.1 mg/dL (8.5-10.1); Chloride 101 mmol/L (98-107); Diff Comment Manual Differential; Estimated GFR 57.66 (mL/min/1.73m2); Glucose 83 mg/dL (74-106); Metamyelocytes % 1; Potassium 4.1 mmol/L (3.5-5.1); RBC Morphology Normal; Sodium 137 mmol/L (136-145)
[2023-09-16] MEDS: Mometasone 220 MCG 14 DOSE INHALER 2 PUFF IH ×2 (07:53→21:01)
[2023-09-16] MEDS: Rosuvastatin 20 MG TAB PO (08:08)
[2023-09-16] MEDS: Doxycycline Hyclate 100 MG CAP PO ×2 (08:08→21:03)
[2023-09-16] MEDS: Cetirizine 10 MG TAB PO (08:09)
[2023-09-16] MEDS: predniSONE 20 MG TAB 40 MG PO (08:09)
[2023-09-16] MEDS: Esomeprazole 20 MG CAPCR PO (08:09)
--- NOTE | 2023-09-16 15:17 | W.PM.PROGNOT ---
Date of Service Date of service: 09/16/23 Time of Service: 15:17 Assessment and Plan Assessment and plan (1) Severe sepsis: Status: Resolved Assessment and plan: source pneumonia responding to treatment, hemodynamically stable. continue current treatment (2) Pneumonia: Status: Acute Assessment and plan: still has oxygen requirement, urinary Legionella antigen negative leukocytosis likely secondary to high dose IV steroids continue nebs and taper steroids to oral burst. downstepped to cefpodoxime oral - day 5/7 continue doxy oral (3) COPD (chronic obstructive pulmonary disease): Status: Chronic Assessment and plan: see above (4) Acute kidney injury: Status: Resolved Assessment and plan: resolved with IV fluids avoid nephrotoxic drugs renal dose as needed. continue to follow (5) Hypomagnesemia: Status: Acute Assessment and plan: replete and follow 2.9 today (6) Hypertension: Status: Chronic Assessment and plan: lisinopril and hctz have been on hold for low readings and in setting of NORA which have resolved and BP now elevated in 140-150's resume lisinopril and HCTZ and continue to monitor. (7) Discharge planning issues: Status: Acute Assessment and plan: DVT prophylaxis added anticipate discharge to home when medically stable, no services anticipated discussed with DR Granger Subjective Subjective Patient reports: no new complaints, tolerating liquids well, tolerating a regular diet, shortness of breath and afebrile Interval history since last seen: still with oxygen requirements while ambulating but improving. Exam Narrative Exam Narrative: fatigued appearing elderly female of stated age in no acute distress, head atraumatic, normocephalic neck supple, no jvd resp even and unlabored, dim bilateral bases, occ faint exp wheeze CV: RRR abd benign ext moves all extremities, no edema Objective Last Vital Signs Temp 36.7 C 09/16/23 08:21 Pulse 97 H 09/16/23 13:24 Resp 22 09/16/23 11:12 BP 151/79 H 09/16/23 11:12 Pulse Ox 89 L 09/16/23 13:24 Laboratory Results - last 24 hr 09/16/23 05:52 WBC 17.53 H RBC 3.90 L Hgb 11.6 Hct 35.2 L MCV 90 MCH 29.7 MCHC 33.0 RDW 13.2 Plt Count 453 H MPV 10.3 Immature Gran % 0.0 Neutrophils % 69.0 Lymphocytes % 22.0 Monocytes % 7.0 Eosinophils % 0.0 Basophils % 0.0 Metamyelocytes % 1 Myelocytes % 1 Nucleated RBC % 0.0 Absolute Neutrophils 12.10 H Absolute Lymphocytes 3.86 H Absolute Monocytes 1.23 H Absolute Eosinophils 0.00 Absolute Basophils 0.00 RBC Morphology Normal Sodium 137 Potassium 4.1 Chloride 101 Carbon Dioxide 28.9 Anion Gap 7.1 BUN 18 Creatinine 1.0 Est GFR (CKD-EPI 2020) 57.66 Glucose 83 Calcium 9.1 Magnesium 2.0 Time Spent with Patient Time Spent with Patient: 35-49 minutes Time was spent: preparing to see the patient(eg.review tests), obtaining and/or reviewing separately otained hiistory, ordering medications,tests, procedures, indepentently interpreting results and counseling the patient
[2023-09-16] MEDS: hydroCHLOROthiazide 12.5 MG TAB PO (16:47)
[2023-09-16] MEDS: Lisinopril 10 MG TAB PO (16:47)
[2023-09-17] VITALS (9 sets, daily range): BP systolic 132–180; BP diastolic 76–83; PULSE 73–91; RESP 2–28; TEMP 36.5–37.1; O2SAT 85–93
[2023-09-17] MEDS: Albuterol/Ipratropium 3 ML UPD VIAL UPD ×3 (02:54→21:03)
[2023-09-17] MEDS: Cefpodoxime 200 MG TAB PO ×2 (03:01→16:35)
[2023-09-17] MEDS: hydroCHLOROthiazide 12.5 MG TAB PO (08:27)
[2023-09-17] MEDS: Lisinopril 10 MG TAB PO (08:27)
[2023-09-17] MEDS: Rosuvastatin 20 MG TAB PO (08:28)
[2023-09-17] MEDS: Cetirizine 10 MG TAB PO (08:28)
[2023-09-17] MEDS: predniSONE 20 MG TAB 40 MG PO (08:28)
[2023-09-17] MEDS: Doxycycline Hyclate 100 MG CAP PO ×2 (08:28→20:47)
[2023-09-17] MEDS: Esomeprazole 20 MG CAPCR PO (08:28)
--- NOTE | 2023-09-17 14:39 | W.PM.DS.N ---
Date of service: 09/18/23 Time of Service: 10:00 DS: Diagnosis Discharge Diagnosis (1) Severe sepsis: Status: Resolved (2) Pneumonia: Status: Acute (3) COPD (chronic obstructive pulmonary disease): Status: Chronic (4) Acute kidney injury: Status: Resolved (5) Hypomagnesemia: Status: Acute (6) Hypertension: Status: Chronic Discharge Plan Disposition Patient Disposition: Home W/Home Health Services Condition: Stable Discharge Details Reason For Visit: Pneumonia, COPD Admit Date/Time: 09/12/23 19:35 Admit Provider: Jose Aceves Attending Provider: Jose Aceves Primary Care Provider: JATINDER WOODALL Hospital Course Hospital Course: This is a 78-year-old female patient past medical history significant for COPD hypertension abdominal aortic aneurysm who presented to the emergency department with symptoms of cough shortness of breath noted to be hypoxic. She states at baseline she normally is 88 to 90% but today noted to be 74%. Does not have oxygen or nebulizer at home. Her workup in the emergency department was concerning for community-acquired pneumonia. She was started on ceftriaxone and doxycycline and a steroid burst for exacerbation of COPD. She was admitted to the hospitalist services for further management her oxygen was slowly weaned. She was eating and drinking bowels and bladder functioning she was safely really ambulated. She will be discharged to home to complete her course with cefpodoxime and doxycycline in addition to her steroid burst. She should resume all her other previous medications as directed. Plan is to discharge home with home health services including nursing PT and OT for routine evaluation and treatment. Follow-up should be scheduled with her primary care provider. Discharge discussed with Dr. Granger. Home Meds and New Rx's Prescriptions: New doxycycline hyclate 100 mg Capsule 100 mg PO BID Qty: 7 0RF cefpodoxime 200 mg Tablet 200 mg PO Q12H Qty: 7 0RF prednisone 20 mg Tablet 40 mg PO DAILY Qty: 6 0RF Continued esomeprazole magnesium 20 mg capsule,delayed release(DR/EC) 20 mg PO DAILY amlodipine 10 mg tablet 10 mg PO DAILY rosuvastatin 20 mg tablet 20 mg PO DAILY cetirizine [All Day Allergy (cetirizine)] 10 mg tablet 10 mg PO DAILY albuterol sulfate [ProAir HFA] 90 mcg/actuation HFA aerosol inhaler 2 puff inhalation Q6H PRN lisinopril 10 mg tablet 20 mg PO DAILY fluticasone propion-salmeterol [Advair HFA] 230-21 mcg/actuation HFA aerosol inhaler 2 puff inhalation BID hydrochlorothiazide 12.5 mg tablet 12.5 mg PO DAILY Discharge Instructions Instructions: COPD (Chronic Obstructive Pulmonary Disease) (DC), Pneumonia (DC) Additional Instructions: complete antibiotics as directed wear oxygen at directed at 1 liter with ambulation. Referrals: JATINDER WOODALL INSULATOR TESTER [Primary Care Provider] - Activity:: Activity as Tolerated Equipment/Supplies:: 1 liter with ambulation Diet:: As Tolerated Discharge Orders Discharge Orders: Discharge Order (Routine); Ordered 09/18/23 Ordered By: Kourtney Cervantes DS: Summary Time Spent with Patient providing and/or coordinating discharge services: Greater than 30 minutes Status at Discharge Functional status at discharge: uses cane/walker Overall status at discharge: patient is progressing back to baseline Mental Status: mental status grossly normal Speech and Movement: speech and movement normal Mood: congruent mood Affect: normal affect Quality:SDOH Health Related Social Needs: No Data to Display Exam Narrative Exam Narrative: Well appearing elderly female of stated age in no acute distress, head atraumatic, normocephalic neck supple, no jvd resp even and unlabored, dim bilateral bases, occ faint exp wheeze in bases CV: RRR abd benign ext moves all extremities, no edema Psych Mental Status: mental status grossly normal Speech and Movement: speech and movement normal Mood: congruent mood Affect: normal affect DS: Data Vitals/I&O Vitals and I&O: Vital Signs Temperature 36.7 C 09/17/23 07:31 Temperature Source Tympanic 09/17/23 07:31 Pulse 91 H 09/17/23 09:54 Pulse Rhythm Regular 09/17/23 08:44 Pulse 103 H 09/12/23 17:31 Respiratory Rate 20 09/17/23 09:54 Respiratory Effort Normal, Non-Labored 09/17/23 08:44 Respiratory Depth Normal 09/17/23 08:44 Respiratory Pattern Tachypnea 09/17/23 08:44 Blood Pressure 145/79 H 09/17/23 09:54 Blood Pressure Mean 75 09/12/23 17:31 Blood Pressure Position Supine 09/12/23 17:33 Pulse Oximetry 91 L 09/17/23 09:54 Oxygen Delivery Method Room Air 09/17/23 09:54 Oxygen Flow Rate 0 09/17/23 09:54 Pain Level 0 09/17/23 07:31 Comment pt titrated off O2 at rest at this time; pt maintaining 90-92% on RA. 09/17/23 09:54 Intake & Output 09/16/23 09/17/23 09/17/23 23:59 11:59 23:59 Other: Urine Appearance Clear Comment voids independently in toilet voids independently in toilet Voiding Methods Toilet Data Completed and Pending Labs on day of discharge: Preliminary micro results at discharge 09/12/23 18:09 Blood Culture - Preliminary Blood NO GROWTH 96 HOURS 09/12/23 17:55 Blood Culture - Preliminary Blood NO GROWTH 96 HOURS PFSH All Active Problems (Updated 09/16/23 @ 16:43 by Kourtney Cervantes NP) Discharge planning issues (Acute) Hypomagnesemia (Acute) Hypoxia (Acute) Pneumonia (Acute) Edema (Acute) Pain, foot (Acute) Corns and callosities (Acute) Nail dystrophy (Acute) Ingrowing nail (Acute) Hypertension (Chronic) COPD (chronic obstructive pulmonary disease) (Chronic) Stage II in 2021. Hyperlipemia (Acute) Abdominal mass (Acute) AAA (abdominal aortic aneurysm) (Acute) 2.9cm in 2019 Hernia (Chronic) Medical History Ventral hernia Chronic cough Prediabetes History of tobacco use significant use; [id number] history; quit in 2009 SOB (shortness of breath) Family history of early CAD Elevated blood pressure reading Surgical History Ventral hernia without obstruction or gangrene (~06/2023) Social History Smoking/Tobacco Use Status: Former Tobacco Use Quit Date: 08/27/09 Pack-years: 50 Smoking risk assessment performed?: Yes Alcohol Intake: current Alcohol Intake frequency: a few times a week Drug use: Never Substance use type: does not use Housing: apartment Current gender identity: female Do you feel safe at home: Yes Do you feel safe in your relationship?: Yes Time Spent with Patient Time Spent with Patient: 45-69 minutes Time was spent: preparing to see the patient(eg.review tests), obtaining and/or reviewing separately otained hiistory, ordering medications,tests, procedures, indepentently interpreting results, counseling the patient and care coordination
--- NOTE | 2023-09-17 14:43 | PDOC.HHF2F_ITS ---
Home Health Referral Home Health Orders Clinical synopsis of why skilled professionals are needed: new oxygen, pneumonia and copd exacerbation Medical diagnosis necessitation home health referral: hypoxic respiratory failure Registered Nurse: Check all that apply Instruct on new or changed medication(s)/assess compliance: Ordered Assess for exacerbation of medical condition, instruct patient/caregivers on signs and symptoms to report for early detection: Ordered Physical Therapist: Check all that apply Increase strength & endurance for safe mobility at home: Ordered To design/establish home maintenance program: Ordered Fall reduction therapy program for patient with history of frequent falls: Ordered Home safety evaluation and teaching/gait training including stair management (if applicable): Ordered Occupational Therapist: Evaluate and treat for patient unable to perform ADL/IADL/self-care: Ordered Upper extremity strengthening, range and motion: Ordered Home Bound Status Describe why leaving home would require a considerable and taxing effort: Requires frequent rest periods and Oxygen Encounter Date and Reason: I certify that a FTF encounter for this patient was performed on September 17, 2023 and that such encounter was related to the primary reason the patient requires home health services. The encounter was conducted in the following manner: * By me as the certifying physician, EMPLOYMENT TRAINER, PA or * By an inpatient physician, EMPLOYMENT TRAINER or PA during an inpatient stay who communicated findings to me, Certification And Authentication I certify that I composed the above information based on my clinical judgment relating to this patient's medical condition and, if applicable, clinical findings communicated to me by the NPP or inpatient physician who performed the FTF encounter. Name of Provider that will be monitoring home health services: JATINDER WOODALL
--- NOTE | 2023-09-17 16:08 | PDOC.CMDIS ---
Date of service: 09/18/23 Time of Service: 16:08 LACE Index Scoring Tool Questions: Length of Stay (in days): 4 - 6 Was the patient admitted via the E.D.?: Yes Comorbidities: Any Tumor and Liver or Renal Disease E.D. Visits: 0 Answers: Total Score: 12 Risk of Readmission: High Risk Care Management Discharge Plan Reason for Hospitalization: Pneumonia, COPD Discharge Plan: Carmina will return home with new orders for home health RN, PT, OT as well as new home oxygen, coordinated by RT. She will transport via private vehicle with family, follow up with her PCP and plan of care as prescribed. Patient/Family Education Needs: Review discharge instructions, discuss Ask Me Three. Services Needed at Discharge: Home Health Care Services and Oxygen Therapy SDOH Health Related Social Needs: No Data to Display
[2023-09-17] MEDS: Mometasone 220 MCG 14 DOSE INHALER 2 PUFF IH (21:03)
[2023-09-18 01:33] VITALS: RESP 18; RESP 2; RESP 9; O2SAT 90
[2023-09-18] MEDS: Albuterol/Ipratropium 3 ML UPD VIAL UPD ×2 (01:33→08:37)
[2023-09-18 01:46] VITALS: PULSE 78; RESP 18; RESP 2; RESP 9; O2SAT 92
[2023-09-18] MEDS: Cefpodoxime 200 MG TAB PO (03:39)
[2023-09-18 07:37] VITALS: BP 146/69; PULSE 88; RESP 16; TEMP 36.9; O2SAT 89
[2023-09-18 07:40] LABS: HCT 37.9 % (36.0-46.0); HGB 12.5 g/dL (11.2-15.7); MCV 91 fL (80-95); MPV 10.5 fL (8.0-11.0); Platelet Count 421 10^3/uL (130-400); RBC 4.16 10^6/uL (3.93-5.22); RDW 13.4 % (11.7-14.6); RDW-SD 45.5 fL; WBC 22.96 10^3/uL (4.4-10.8)
[2023-09-18] MEDS: Cetirizine 10 MG TAB PO (07:44)
[2023-09-18] MEDS: Doxycycline Hyclate 100 MG CAP PO (07:44)
[2023-09-18] MEDS: Lisinopril 10 MG TAB PO (07:44)
[2023-09-18] MEDS: Rosuvastatin 20 MG TAB PO (07:44)
[2023-09-18] MEDS: hydroCHLOROthiazide 12.5 MG TAB PO (07:44)
[2023-09-18] MEDS: predniSONE 20 MG TAB 40 MG PO (07:44)
[2023-09-18] MEDS: Esomeprazole 20 MG CAPCR PO (07:44)
[2023-09-18] MEDS: Mometasone 220 MCG 14 DOSE INHALER 2 PUFF IH (08:38)
[2023-09-18 08:45] VITALS: O2SAT 93
--- NOTE | 2023-09-18 10:16 | W.PM.PROGNOT ---
Date of Service Date of service: 09/17/23 Time of Service: 10:16 Assessment and Plan Assessment and plan (1) Severe sepsis: Status: Resolved Assessment and plan: source pneumonia responding to treatment, hemodynamically stable. continue current treatment (2) Pneumonia: Status: Acute Assessment and plan: still has oxygen requirement, urinary Legionella antigen negative leukocytosis likely secondary to high dose IV steroids continue nebs and taper steroids to oral burst. downstepped to cefpodoxime oral - day 6/7 continue doxy oral (3) COPD (chronic obstructive pulmonary disease): Status: Chronic Assessment and plan: see above (4) Acute kidney injury: Status: Resolved Assessment and plan: resolved with IV fluids avoid nephrotoxic drugs renal dose as needed. continue to follow (5) Hypomagnesemia: Status: Acute Assessment and plan: repleted, continue to follow (6) Hypertension: Status: Chronic Assessment and plan: lisinopril and hctz have been on hold for low readings and in setting of NORA which have resolved and BP now elevated in 140-150's resume lisinopril and HCTZ and continue to monitor. (7) Discharge planning issues: Status: Acute Assessment and plan: DVT prophylaxis added anticipate discharge to home when medically stable, no services anticipated discussed with DR Granger Subjective Subjective Patient reports: no new complaints, feels better, tolerating liquids well, tolerating a regular diet, voiding w/o difficulty and afebrile; denies shortness of breath Exam Narrative Exam Narrative: Well appearing elderly female of stated age in no acute distress, head atraumatic, normocephalic neck supple, no jvd resp even and unlabored, dim bilateral bases, occ faint exp wheeze and coarse breath sound in bases CV: RRR abd benign ext moves all extremities, no edema Objective Last Vital Signs Temp 36.9 C 09/18/23 07:37 Pulse 88 09/18/23 07:37 Resp 16 09/18/23 07:37 BP 146/69 H 09/18/23 07:37 Pulse Ox 93 09/18/23 08:45 Laboratory Results - last 24 hr 09/18/23 06:19 WBC 22.96 H RBC 4.16 Hgb 12.5 Hct 37.9 MCV 91 MCH 30.0 MCHC 33.0 RDW 13.4 Plt Count 421 H MPV 10.5 Time Spent with Patient Time Spent with Patient: 35-49 minutes Time was spent: preparing to see the patient(eg.review tests), obtaining and/or reviewing separately otained hiistory, ordering medications,tests, procedures, indepentently interpreting results and counseling the patient
[2023-09-18 11:12] VITALS: PULSE 102; PULSE 118; PULSE 119; PULSE 97; RESP 16; RESP 18; RESP 20; O2SAT 87; O2SAT 90; O2SAT 93
[2023-09-18 11:18] VITALS: BP 148/77; PULSE 86; RESP 18; TEMP 37.2; O2SAT 88
--- NOTE | 2023-09-18 11:20 | RESPIRATORY ---
Patient is being discharged home today with new home O2. New prescription is room air at rest, 1L with ambulation. DME: Andra purdy. Script was sent through [employer] platform and patient will be sent home with E tank and regulator from [facility]'s consignment closet. Regulator rental #[id number] and Tank [id number].
== END 2023-09-18 15:33 | disposition home health service (06) | DRG 871 ==
LOC: ER 19:49 → MS 20:18
PROVIDERS: Internal Medicine; Admitting Provider General Practice; Emergency Provider Emergency Medicine; PCP Nurse Practitioner Family; Visit Provider General Practice
DX: A41.9 Sepsis, unspecified organism (principal); J18.9 Pneumonia, unspecified organism; J44.0 Chronic obstructive pulmonary disease with (acute) lower respiratory infection; N17.9 Acute kidney failure, unspecified; R65.20 Severe sepsis without septic shock; E83.42 Hypomagnesemia; I10 Essential (primary) hypertension; Z66 Do not resuscitate; R09.02 Hypoxemia; R60.0 Localized edema; E78.5 Hyperlipidemia, unspecified; R73.03 Prediabetes; R05.3 Chronic cough; I71.40 Abdominal aortic aneurysm, without rupture, unspecified; Z87.891 Personal history of nicotine dependence; Z79.899 Other long term (current) drug therapy
CPT/HCPCS: 00123; 36415; 80048; 80053; 82805; 84145; 85027; 87040; 87449; 87637; 93005; 94618; 94640; 96365; 96368; 96375; 99291; J1650; 71045; 83735; 83880; 84484; 85025; 93010; 94664; 94667; 94668; 94760; 99222; 99232; 99233; 99239; J0456; J0692; J0696; J2543; J2919; J2930; J3370; J3475; J7512; J7620

== ENCOUNTER 2023-09-26 13:40 | Outpatient (REF) | payer MEDICARE, SELFPAY ==
[2023-09-26 19:35] LABS: HCT 36.6 % (36.0-46.0); HGB 11.7 g/dL (11.2-15.7); MCH 29.8 pg (27.0-33.0); MCV 93 fL (80-95); MPV 11.1 fL (8.0-11.0); Platelet Count 265 10^3/uL (130-400); RBC 3.92 10^6/uL (3.93-5.22); RDW 14.2 % (11.7-14.6); RDW-SD 48.7 fL; WBC 21.77 10^3/uL (4.4-10.8)
[2023-09-26 19:44] LABS: ALT 24 U/L (14-59); AST 20 U/L (15-37); Albumin 3.2 g/dL (3.4-5.0); Alkaline Phosphatase 86 U/L (46-116); Anion Gap 8.5 mmol/L (3-11); BUN 17 mg/dL (7-18); Bilirubin, Total 0.3 mg/dL (0.2-1.0); CO2 27.5 mmol/L (21.0-32.0); CREATININE 1.3 mg/dL (0.55-1.02); Calcium 8.6 mg/dL (8.5-10.1); Chloride 103 mmol/L (98-107); Estimated GFR 42.09 (mL/min/1.73m2); Glucose 113 mg/dL (74-106); Magnesium 0.9 mg/dL (1.8-2.4); Potassium 4.2 mmol/L (3.5-5.1); Sodium 139 mmol/L (136-145); Total Protein 7.1 g/dL (6.4-8.2)
== END 2023-09-26 13:41 | disposition home or self-care (01) ==
LOC: NCHCN 13:40
PROVIDERS: PCP Nurse Practitioner Family; Visit Provider Nurse Practitioner Family
DX: E83.42 Hypomagnesemia (principal); R25.2 Cramp and spasm
CPT/HCPCS: 80053; 85027; 83735

== ENCOUNTER → 2024-02-26 02:09 | Outpatient (CLI) | payer MEDICARE, SELFPAY ==
--- NOTE | 2024-02-26 | DI.US_ITS ---
Exam(s) US AAA DIAGNOSTIC EXAM: US AAA DIAGNOSTIC CLINICAL HISTORY: AAA YEARLY FOLLOW UP I71.40 COMPARISON: CT CT ABDOMEN PELVIS W from 05/14/2020 US US AAA DIAGNOSTIC from 01/19/2023 FINDINGS: Abdominal aorta is noted be atherosclerotic. There is aneurysmal dilatation of the distal aorta whic h exhibits maximum diameter 3.3 cm just above the level the bifurcation. Both common iliac arteries exhibit upper normal diameters. IMPRESSION: There is mild aneurysmal dilatation of the distal abdominal aorta noted, commensurate with finding on prior CT scan of April 2020. Maximum diameter of the abdominal aorta at this level is 3.3 cm. There is no significant arterial megaly of the visualized common iliac arteries. DATA REPOSITORY:
== END ==
PROVIDERS: PCP Nurse Practitioner Family; Visit Provider Nurse Practitioner Family
DX: I71.40 Abdominal aortic aneurysm, without rupture, unspecified (principal)
CPT/HCPCS: 76775

== ENCOUNTER 2024-11-04 11:01 | Outpatient (REF) | payer MEDICARE, SELFPAY ==
[2024-11-04 15:37] LABS: Hemoglobin A1C 6.1 % (<5.7)
[2024-11-04 15:45] LABS: ALT 21 U/L (14-59); AST 21 U/L (15-37); Albumin 3.9 g/dL (3.4-5.0); Alkaline Phosphatase 118 U/L (46-116); BUN 22 mg/dL (7-18); Bilirubin, Total 0.2 mg/dL (0.2-1.0); CREATININE 1.4 mg/dL (0.55-1.02); Calcium 10.1 mg/dL (8.5-10.1); Chloride 106 mmol/L (98-107); Estimated GFR 38.27 (mL/min/1.73m2); Glucose 106 mg/dL (74-106); Sodium 144 mmol/L (136-145); Total Protein 7.7 g/dL (6.4-8.2)
== END 2024-11-04 11:02 | disposition home or self-care (01) ==
LOC: NCHCN 11:01
PROVIDERS: PCP Nurse Practitioner Family; Visit Provider Nurse Practitioner Family
DX: R73.03 Prediabetes (principal); I10 Essential (primary) hypertension
CPT/HCPCS: 80053; 83036

== ENCOUNTER 2025-02-04 10:07 | Outpatient (REF) | payer MEDICARE, SELFPAY ==
[2025-02-04 16:09] LABS: Anion Gap 9.8 mmol/L (3-11); BUN 28 mg/dL (7-18); CO2 26.2 mmol/L (21.0-32.0); CREATININE 1.4 mg/dL (0.55-1.02); Calcium 9.9 mg/dL (8.5-10.1); Chloride 98 mmol/L (98-107); Estimated GFR 38.27 (mL/min/1.73m2); Glucose 129 mg/dL (74-106); Sodium 134 mmol/L (136-145)
== END 2025-02-04 10:08 | disposition home or self-care (01) ==
LOC: NCHCN 10:07
PROVIDERS: PCP Nurse Practitioner Family; Visit Provider Nurse Practitioner Family
DX: I10 Essential (primary) hypertension (principal)
CPT/HCPCS: 80048

== ENCOUNTER 2025-02-19 00:49 | Outpatient (CLI) | payer MEDICARE, SELFPAY ==
--- NOTE | 2025-02-19 07:55 | DI.US_ITS ---
Exam(s) US AAA DIAGNOSTIC EXAM: US AAA DIAGNOSTIC CLINICAL HISTORY: ABDOMINAL AORTIC ANEURYSM W/O RUPTURE, I71.40 COMPARISON: US US AAA DIAGNOSTIC from 02/26/2024 FINDINGS: Abdominal Aorta: Proximal: 2.3 cm Mid: 3.5 cm Distal: 2.3 cm Iliacs: Right: 1.4 cm Left: 1.7 cm IMPRESSION: Stable abdominal aortic aneurysm. DATA REPOSITORY:
== END 2025-02-19 01:09 ==
PROVIDERS: PCP Nurse Practitioner Family; Visit Provider Nurse Practitioner Family
DX: I71.40 Abdominal aortic aneurysm, without rupture, unspecified (principal)
CPT/HCPCS: 76775

== ENCOUNTER → 2025-03-11 13:07 | Outpatient (BNVA) | payer MEDICARE, SELFPAY | PROVIDERS: PCP Nurse Practitioner Family; Referring Provider Nurse Practitioner Family; Visit Provider Physician Assistant Surgical | DX: J44.9 Chronic obstructive pulmonary disease, unspecified (principal); J96.11 Chronic respiratory failure with hypoxia | CPT/HCPCS: 99215; 94618 ==

== ENCOUNTER 2025-03-28 10:47 | Outpatient (REF) | payer MEDICARE, SELFPAY ==
[2025-03-28 17:04] LABS: RBC 0-2 HPF (0-2); WBC 0-2 HPF (0-5)
== END 2025-03-28 10:48 | disposition home or self-care (01) ==
LOC: LBN 10:47
PROVIDERS: PCP Nurse Practitioner Family; Visit Provider Physician Assistant Medical
DX: R30.0 Dysuria (principal); B96.29 Other Escherichia coli [E. coli] as the cause of diseases classified elsewhere; R82.89 Other abnormal findings on cytological and histological examination of urine
CPT/HCPCS: 87077; 81015; 87086; 87186; 87480; 87510; 87660

== ENCOUNTER → 2025-06-04 08:26 | Outpatient (BNVA) | payer MEDICARE, SELFPAY | PROVIDERS: PCP Nurse Practitioner Family; Referring Provider Nurse Practitioner Family; Visit Provider Physician Assistant Surgical | DX: J44.9 Chronic obstructive pulmonary disease, unspecified (principal); J96.11 Chronic respiratory failure with hypoxia; Z87.891 Personal history of nicotine dependence | CPT/HCPCS: 99214 ==

== ENCOUNTER 2025-08-10 12:21 | Outpatient (REF) | payer MEDICARE, SELFPAY ==
[2025-08-10 15:19] LABS: Hemoglobin A1C 5.6 % (<5.7)
[2025-08-10 15:29] LABS: Anion Gap 11.2 mmol/L (3-11); BUN 22 mg/dL (9-23); CO2 26.8 mmol/L (20.0-31.0); Calcium 10.2 mg/dL (8.3-10.6); Chloride 104 mmol/L (98-107); Glucose 98 mg/dL (74-106); Potassium 4.9 mmol/L (3.5-5.1); Sodium 142 mmol/L (136-145)
== END 2025-08-10 12:22 | disposition home or self-care (01) ==
LOC: NCHCN 12:21
PROVIDERS: PCP Nurse Practitioner Family; Visit Provider Nurse Practitioner Family
DX: R73.03 Prediabetes (principal); N28.9 Disorder of kidney and ureter, unspecified
CPT/HCPCS: 80048; 83036